=== PATIENT | female | born 1940 | race Two or more races ===

== ENCOUNTER 2020-06-04 14:20 | Observation (INO) | payer MEDICARE, MEDICAID, SELFPAY ==
[2020-06-04 14:33] VITALS: BP 158/92; PULSE 58; RESP 18; TEMP 37.1; O2SAT 97; BMI 25.8
--- NOTE | 2020-06-04 19:58 | PC.NURSE ---
CALL PLACED TO INTERPERATOR.
[2020-06-04 20:29] VITALS: BP 145/75; RESP 16; TEMP 36.8; O2SAT 58
--- NOTE | 2020-06-04 21:01 | ED.NEUROSD ---
HPI - Neuro Symptoms/Deficit General Chief Complaint: Neuro Symptoms/Deficit Stated Complaint: leg numbness Time Seen by Provider: 06/04/20 20:45 Source: patient Limitations: language barrier (manager product design used to obtain and review) History of Present Illness HPI Narrative: Please note, given the high volume, there was significant delay in evaluating this patient. 79-year-old female who presents to the emergency department for evaluation of right lower extremity weakness. The patient states that she woke up at noon and was unable to walk secondary to weakness. The symptoms persisted so she came to the emergency department 2 hours later and the weakness has persisted. She denies any numbness of her lower extremities. She denies headache or back pain. She denied being in any way including fever, chills, neck pain, numbness, nausea, vomiting, chest pain, shortness of breath, abdominal pain, change in bowel movements, frequency, urgency or dysuria. The patient states that she got electively tested for COVID 19, 4 days prior and got her result today and she is COVID-19 negative. Related Data Home Medications Medication Instructions Recorded Confirmed levothyroxine 1 tab PO DAILY 06/04/20 06/04/20 metoprolol succinate 1 tab PO DAILY 06/04/20 06/04/20 Allergies Allergy/AdvReac Type Severity Reaction Status Date / Time aspirin Allergy Mild HYPERVENTIL Verified 06/04/20 20:28 ATION Fish Containing Products Allergy Mild HIVES Verified 06/04/20 20:28 fish derived Allergy Mild HIVES Verified 06/04/20 20:28 Penicillins Allergy Mild DIFFICULTY Verified 06/04/20 20:28 BREATHING turkey Allergy Mild HIVES Verified 06/04/20 20:28 acetaminophen [Percocet] Allergy Unknown vomiting Verified 11/05/19 00:00 oxycodone [Percocet] Allergy Unknown vomiting Verified 11/05/19 00:00 penicillin V Allergy Unknown Vomiting Verified 06/04/20 20:28 From Percocet Allergy Unknown UNKNOWN Uncoded 02/12/20 15:05 Review of Systems Review of Systems: Yes all other systems are reviewed and are negative ENT: Reports Normal hearing present Neurologic: Reports Normal hearing present and Reports Abnormal speech present PMFSH Past Medical History [facility] Narrative: The patient has a history of thoracic aneurysm, hypertension and hypothyroidism, she lives with her daughter. She denies tobacco, alcohol or drug use. Social History Social History Smoked in Last 30 Days: No Use of substances other than those prescribed or required for medical reasons: No Advance Directives: No Advance Directives Information Provided: Yes Physical Exam Vital Signs: Vital Signs: Last Vital Signs Temp 98.2 F 06/04/20 20:29 Pulse 58 06/04/20 14:33 Resp 16 06/04/20 20:29 BP 145/75 H 06/04/20 20:29 Pulse Ox 58 L 06/04/20 20:29 Body Mass Index 25.8 Const: General: cooperative and healthy appearing Orientation/consciousness: oriented to person and oriented to place Limitations: no limitations HENMT: Head: Yes normal to inspection, Yes normocephalic and Yes atraumatic Ears: external ears normal General nose exam: Normal external nose present Face and sinus: Yes normal facial exam Mouth: Normal oral and palatal mucosa present Throat: Yes posterior oropharynx normal Eyes: Periorbital: periorbital findings normal Eyelids: Yes eyelids normal Conjunctivae: conjunctivae normal Sclerae: sclerae normal Corneas: corneas normal Pupils: Equal, round and reactive pupils present Direct Ophthalmoscopy: normal light reflex Neck: Neck: Yes full ROM, Yes no lymphadenopathy, Yes no meningeal signs, Yes trachea midline and Yes supple Chest: Chest palpation & inspection: normal inspection of the chest and normal palpation of entire chest wall Resp: Effort & Inspection: normal respiratory effort and able to speak in complete sentences Auscultation: clear to auscultation bilaterally Cardio: Rate: regular rate Rhythm: regular rhythm Heart sounds: S1 normal heart sound present, S2 normal heart sound present and no murmurs GI: Inspection: Yes normal to inspection Palpation (GI): Soft to palpation, nontender, no guarding, not rigid and No hepatosplenomegaly present : General: Yes no CVA tenderness Back/Spine/Pelvis: Back: no CVA tenderness Cervical Spine: normal cervical lordosis Thoracic/Lumbar Spine: thoracic and lumbar spine normal to inspection Skin: Lesions: no lesions Rashes: no rashes Wounds: no wounds Neuro: General: oriented to person, oriented to place and no meningeal signs Cranial nerves: Yes CN's II-XII intact bilaterally, Yes Equal, round and reactive pupils present, Yes Bilaterally intact EOM present, Yes Normal facial strength present, Yes Midline tongue present and Yes Normal hearing present Cognition (Neuro): normal cognition Speech: Abnormal speech present Motor exam (neuro): Other motor observations present (Unable to move right lower extremity against gravity or side to side on the) Sensory Exam: Normal double simultaneous stimulation for sensation Extrem: General: Yes normal to inspection and Yes other (Unable to move right lower extremity) Psych: Appearance: well kempt Mental Status: mental status grossly normal Speech and movement: Normal speech and movement present Affect: normal affect Attitude: cooperative Thought process: Normal thought process present Thought content: Normal thought content present Course Course Course Narrative: [age] female who presents to emergency department for evaluation of right lower extremity weakness that began at noon time on the day of arrival when the patient woke up. The weakness has persisted. Her neurologic exam did reveal inability to move the right leg against gravity with a normal sensory exam in no other neurologic findings. I did order stroke workup on this patient. She is not having any back symptoms and concerned that she may be having a stroke. The patient is allergic to aspirin and was not given any aspirin in the emergency department. 2241: Patient's laboratory evaluation was unremarkable. Twelve EKG reveals a sinus bradycardia, CT scan of the brain revealed an old right lacunar infarct with chronic small-vessel ischemia. At this time I do not have a clear etiology for the patient's right leg weakness, it is possible she may have had a stroke. I will discuss the patient's presentation with the covering neurologist and hospitalist. 2321: I did discuss the patient's presentation with Dr. Benito the neurologist who recommended that the patient be admitted and started on Plavix since she is allergic to aspirin. Patient was ordered to get Plavix 75 mg orally. He recommended an MRI and stroke workup on the patient. I also discuss the patient's presentation with the covering hospitalist. EKG interpretation 2201: Sinus bradycardia with a rate of 58, normal AK, QRS interval, prolonged QTC of 475 milliseconds, biphasic P-wave in lead 3, flattened T-wave in V2, no ST segment elevation, no ST segment depression, no old EKG for comparison, no evidence myocardial injury, ischemia. MDM - Neuro Symptoms/Deficit Lab Data Result diagrams: 06/04/20 21:23 06/04/20 21:23 Labs: Lab Results 06/04/20 06/04/20 06/04/20 Range/Units 21:23 21:23 21:23 WBC 3.7 L (4.8-10.8) X10*3/uL RBC 4.55 (4.20-5.50) X10*6/uL Hgb 11.9 L (12.0-16.0) g/dl Hct 38.6 (37-47) % MCV 84.8 (80-98) fL MCH 26.2 L (27.0-33.0) pg MCHC 30.8 L (31.0-35.0) g/dl RDW 15.7 (11.0-16.0) % Plt Count 179 (160-400) X10*3/uL MPV 11.0 (9.4-12.3) fL Immature Gran % (Auto) 1.4 H (0.0-0.4) % Neut % (Auto) 43.1 L (45-73) % Lymph % (Auto) 40.5 H (20-40) % [place] % (Auto) 12.8 H (2-11) % Eos % (Auto) 1.9 (0-4) % Baso % (Auto) 0.3 (0-2) % Lymph # (Auto) 1.5 (1.2-4.9) X10*3/uL [place] # (Auto) 0.5 (0.1-1.2) X10*3/uL Eos # (Auto) 0.1 (0.0-0.4) X10*3/uL Baso # (Auto) 0.0 (0.0-0.2) X10*3/uL Abs Immat Gran (auto) 0.05 H (0.00-0.03) X10*3/uL Absolute Neuts (auto) 1.6 L (2.0-8.3) X10*3/uL Absolute Nucleated RBC 0.000 (0.0-0.012) X10*3/uL Nucleated RBC % (auto) 0.0 (0.0-0.2) /100WBC PT 12.5 (10.8-13.0) SEC INR 1.1 (0.9-1.1) APTT 32.3 (24.1-38.0) SEC Sodium 142 (135-145) mmol/L Potassium 4.1 (3.3-5.1) mmol/l Chloride 106 (96-108) mmol/L Carbon Dioxide 27 (22-29) mmol/L Anion Gap 13 (12-20) BUN 15 (9-16) mg/dL Creatinine 0.76 (0.5-1.4) mg/dL Estim Creat Clear Calc 61.2 Estimated GFR > 60 Random Glucose 84 (60-115) mg/dL Calcium 8.9 (8.4-10.2) mg/dL Total Bilirubin 0.6 (0.0-1.0) mg/dL AST 12 (5-31) U/L ALT 9 (0-31) U/L Alkaline Phosphatase 56 (39-117) U/L Troponin I High Sens (<3.5-17.0) ng/L Total Protein 7.2 (6.5-8.0) g/dL Albumin 4.1 (3.5-5.0) g/dL Lipase 70 (8-78) U/L 06/04/20 Range/Units 21:23 WBC (4.8-10.8) X10*3/uL RBC (4.20-5.50) X10*6/uL Hgb (12.0-16.0) g/dl Hct (37-47) % MCV (80-98) fL MCH (27.0-33.0) pg MCHC (31.0-35.0) g/dl RDW (11.0-16.0) % Plt Count (160-400) X10*3/uL MPV (9.4-12.3) fL Immature Gran % (Auto) (0.0-0.4) % Neut % (Auto) (45-73) % Lymph % (Auto) (20-40) % [place] % (Auto) (2-11) % Eos % (Auto) (0-4) % Baso % (Auto) (0-2) % Lymph # (Auto) (1.2-4.9) X10*3/uL [place] # (Auto) (0.1-1.2) X10*3/uL Eos # (Auto) (0.0-0.4) X10*3/uL Baso # (Auto) (0.0-0.2) X10*3/uL Abs Immat Gran (auto) (0.00-0.03) X10*3/uL Absolute Neuts (auto) (2.0-8.3) X10*3/uL Absolute Nucleated RBC (0.0-0.012) X10*3/uL Nucleated RBC % (auto) (0.0-0.2) /100WBC PT (10.8-13.0) SEC INR (0.9-1.1) APTT (24.1-38.0) SEC Sodium (135-145) mmol/L Potassium (3.3-5.1) mmol/l Chloride (96-108) mmol/L Carbon Dioxide (22-29) mmol/L Anion Gap (12-20) BUN (9-16) mg/dL Creatinine (0.5-1.4) mg/dL Estim Creat Clear Calc Estimated GFR Random Glucose (60-115) mg/dL Calcium (8.4-10.2) mg/dL Total Bilirubin (0.0-1.0) mg/dL AST (5-31) U/L ALT (0-31) U/L Alkaline Phosphatase (39-117) U/L Troponin I High Sens 14.1 (<3.5-17.0) ng/L Total Protein (6.5-8.0) g/dL Albumin (3.5-5.0) g/dL Lipase (8-78) U/L Imaging Data CT scan - head: Radiologist's impression: EXAMINATION: CT HEAD WITHOUT CONTRAST CLINICAL INFORMATION: Right leg weakness. Concern for a stroke COMPARISON: CT head 07/20/2010 TECHNIQUE: Contiguous axial imaging was performed from the skull base to vertex without intravenous administration of contrast. Coronal and sagittal reformatted images are performed at the CT scanner This CT examination was performed using dose optimization techniques as appropriate, variously including the following: *Automated exposure control *Adjustment of mA and/or kV according to patient size (this includes techniques or standardized protocols for targeted exams where dose is matched to indication/reason for exam; i.e. extremities or head) *Use of iterative reconstruction technique DLP: 749 mGy-cm FINDINGS: There is no evidence of acute intracranial hemorrhage or territorial infarction. No abnormal mass effect or midline shift is seen. Hinojosa to white matter differentiation is well preserved. No extra-axial fluid collections are identified. Chronic lacunar infarct in the right head of the caudate. There is age-appropriate atrophy of mild prominence of the ventricles and the sulci and hypodensity of the periventricular white matter due to chronic small vessel ischemic disease. There are vascular calcifications of the internal carotid arteries bilaterally. The osseous structures and soft tissues are normal. The mastoid air cells and visualized portions of the paranasal sinuses are well aerated. CT/CT head/brain wo con IMPRESSION: No acute intracranial pathology. Dictated By:JUANITA FRIAS MD Signed By:<Electronically signed by JUANITA FRIAS MD in OV>06/04/20 2724 NIH Stroke Scale Time: 21:07 Level of Consciousness: Alert Level of Consciousness Questions: Answers both questions correctly Level of Consciousness Commands: Performs both tasks correctly Best Gaze: Normal Visual: No visual loss Facial Palsy: Normal Motor Arm (Right): No drift Motor Arm (Left): No drift Motor Leg (Right): No movement Motor Leg (Left): No drift Limb Ataxia: Absent Sensory: Normal Best Language: No aphasia Dysarthia: Normal Extinction and Inattention: No abnormality Score: 4 Discharge Plan Discharge Clinical Impression: Cerebrovascular accident, Right leg weakness Patient Disposition: Admitted As Inpatient
--- NOTE | 2020-06-04 21:02 | ECG_ITS ---
Test Reason : WEAKNESS Blood Pressure : / mmHG Vent. Rate : 058 BPM Atrial Rate : 058 BPM P-R Int : 168 ms QRS Dur : 084 ms QT Int : 484 ms P-R-T Axes : 042 -19 057 degrees QTc Int : 475 ms Sinus bradycardia Possible Left atrial enlargement Borderline ECG When compared with ECG of 26-MAY-2012 14:51, Nonspecific T wave abnormality now evident in Anterior leads Referred By: Braxton Mcadams Electronically Signed By:Keaton Case
[2020-06-04 21:29] LABS: Basophils Percent Auto 0.3 % (0-2); Eosinophils Absolute Auto 0.1 X10*3/uL (0.0-0.4); Eosinophils Percent Auto 1.9 % (0-4); Hematocrit 38.6 % (37-47); Hemoglobin 11.9 g/dl (12.0-16.0); Imm Gran Abs Auto 0.05 X10*3/uL (0.00-0.03); Imm Gran Pct Auto 1.4 % (0.0-0.4); Lymphocytes Absolute Auto 1.5 X10*3/uL (1.2-4.9); Lymphocytes Percent Auto 40.5 % (20-40); Mean Corpuscular HGB Conc 30.8 g/dl (31.0-35.0); Mean Corpuscular Hemoglobin 26.2 pg (27.0-33.0); Mean Corpuscular Volume 84.8 fL (80-98); Monocytes Absolute Auto 0.5 X10*3/uL (0.1-1.2); Monocytes Percent Auto 12.8 % (2-11); Neutrophils Absolute Auto 1.6 X10*3/uL (2.0-8.3); Neutrophils Percent Auto 43.1 % (45-73); Platelet Count 179 X10*3/uL (160-400); Red Blood Count 4.55 X10*6/uL (4.20-5.50); Red Cell Distribution Width 15.7 % (11.0-16.0); White Blood Count 3.7 X10*3/uL (4.8-10.8)
[2020-06-04 21:30] LABS: MANUAL DIFF FLAG NO
[2020-06-04 21:38] LABS: INTERNATIONAL NORM RATIO 1.1 (0.9-1.1); Prothrombin Time 12.5 SEC (10.8-13.0)
[2020-06-04 21:40] LABS: Partial Thromboplastin Time 32.3 SEC (24.1-38.0)
[2020-06-04 21:59] LABS: Alanine Aminotransferase 9 U/L (0-31); Albumin Level 4.1 g/dL (3.5-5.0); Alkaline Phosphatase 56 U/L (39-117); Anion Gap 13 (12-20); Aspartate Amino Transferase 12 U/L (5-31); Bilirubin Total 0.6 mg/dL (0.0-1.0); Blood Urea Nitrogen 15 mg/dL (9-16); Calcium 8.9 mg/dL (8.4-10.2); Carbon Dioxide 27 mmol/L (22-29); Chloride 106 mmol/L (96-108); Creatinine Clr Calc Pharmacy 61.2; Estimated Glomerular Filt Rate > 60; Glucose Random 84 mg/dL (60-115); Lipase 70 U/L (8-78); Potassium 4.1 mmol/l (3.3-5.1); Sodium 142 mmol/L (135-145); Total Protein 7.2 g/dL (6.5-8.0)
[2020-06-04 22:05] LABS: Troponin-I High Sensitivity 14.1 ng/L (<3.5-17.0)
--- NOTE | 2020-06-04 23:32 | PC.NURSE ---
dr quan with neurologist pt will be admitted for observation and MRI tomorrow. plavix will be started.
[2020-06-04] MEDS: Clopidogrel Bisulfate 75 MG TABLET PO (23:37)
[2020-06-04 23:39] LABS: Glucose Urine UA NEG (NEG); Leukocyte Esterase Urine NEG (NEG); Nitrite Urine NEG (NEG); Specific Gravity - Urine 1.025 (1.005-1.025); Urine Blood NEG (NEG); Urine Ketones NEG (NEG); Urine Protein NEG (NEG-TRACE)
[2020-06-04 23:42] LABS: Appearance Urine CLEAR; Color Urine YELLOW; UACC Culture Trigger NO
[2020-06-05] VITALS (8 sets, daily range): BP systolic 119–172; BP diastolic 87–97; PULSE 56–67; RESP 14–17; TEMP 36.8–37.1; O2SAT 94–97
[2020-06-05 00:40] LABS: COVID-19 Test Negative (Negative); IDNOW Serial# 9DD0AD1C
--- NOTE | 2020-06-05 00:54 | PM.IMHP ---
History of Present Illness Date of Service: 06/05/20 Chief Complaint: Right lower extremity weakness A 79 years old Ethiopian-speaking lady with PMH of HTN, hypothyroid who presents to the hospital with new onset right lower extremity weakness. The patient report she woke up in the morning of admission and noticed directly that she is unable to move her right lower extremity almost at all. She was able to feel as she did not lose sensation in her leg. Her symptoms persisted since the beginning and did not improve. She denies any other weakness, difficulty speaking, double vision, dizziness, loss of conscious, lose of sphincter control. In the emergency her blood work was within normal. CT scan of the head showing old right lacunar infarct with small-vessel ischemia. Discussed with neurology who recommended starting Plavix and to do MRI. Admitted for further evaluation treatment. Review of Systems Review of Systems: No fever, chills or weakness No chest pain, palpitation No shortness of breath or coughing No abdominal pain, nausea or vomiting No urinary symptoms No any rash or wounds ENT: Reports Normal hearing present Neurologic: Reports Normal hearing present and Reports Abnormal speech present [facility] Social History Smoked in Last 30 Days: No Use of substances other than those prescribed or required for medical reasons: No Advance Directives: No Advance Directives Information Provided: Yes Meds Allergies Allergy/AdvReac Type Severity Reaction Status Date / Time aspirin Allergy Mild HYPERVENTIL Verified 06/04/20 20:28 ATION Fish Containing Products Allergy Mild HIVES Verified 06/04/20 20:28 fish derived Allergy Mild HIVES Verified 06/04/20 20:28 Penicillins Allergy Mild DIFFICULTY Verified 06/04/20 20:28 BREATHING turkey Allergy Mild HIVES Verified 06/04/20 20:28 acetaminophen [Percocet] Allergy Unknown vomiting Verified 11/05/19 00:00 oxycodone [Percocet] Allergy Unknown vomiting Verified 11/05/19 00:00 penicillin V Allergy Unknown Vomiting Verified 06/04/20 20:28 From Percocet Allergy Unknown UNKNOWN Uncoded 02/12/20 15:05 Home Medications Medication Instructions Recorded Confirmed Type levothyroxine 1 tab PO DAILY 06/04/20 06/04/20 History metoprolol succinate 1 tab PO DAILY 06/04/20 06/04/20 History Physical Exam Vital Signs and Narrative: Vital Signs: Last Vital Signs Temp 98.7 F 06/05/20 00:43 Pulse 58 06/05/20 00:43 Resp 16 06/05/20 00:43 BP 156/89 H 06/05/20 00:43 Pulse Ox 96 06/05/20 00:43 Body Mass Index 25.8 Constitutional : Alert, oriented, not in distress Neck : Normal inspection, Supple Cardiovascular : RRR, S1 S2, no lower extremity edema Respiratory : Good bilateral air entry, no crackles, wheezes or rhonchi Gastrointestinal: soft, lax, Normal bowel sounds, Non tender Skin : Warm/Dry, No rash Neurological : Alert & oriented x3, cranial nerves grossly within normal, pupils round and equal, reactive to light, bilateral upper extremity normal strength and power, right lower extremity weakness of 1, no sensory deficit noticed. Neuro: Cranial nerves: Yes Normal hearing present Speech: Abnormal speech present Results Labs CBC and Chem 7: 06/04/20 21:23 06/04/20 21:23 Labs: Laboratory Results - last 24 hr 06/04/20 06/04/20 06/04/20 21:23 21:23 21:23 MCV 84.8 MCH 26.2 L MCHC 30.8 L RDW 15.7 Plt Count 179 MPV 11.0 Immature Gran % (Auto) 1.4 H Neut % (Auto) 43.1 L Lymph % (Auto) 40.5 H [place] % (Auto) 12.8 H Eos % (Auto) 1.9 Baso % (Auto) 0.3 Lymph # (Auto) 1.5 [place] # (Auto) 0.5 Eos # (Auto) 0.1 Baso # (Auto) 0.0 Abs Immat Gran (auto) 0.05 H Absolute Neuts (auto) 1.6 L Absolute Nucleated RBC 0.000 Nucleated RBC % (auto) 0.0 PT 12.5 INR 1.1 APTT 32.3 Anion Gap 13 Estim Creat Clear Calc 61.2 Estimated GFR > 60 Random Glucose 84 Calcium 8.9 Total Bilirubin 0.6 AST 12 ALT 9 Alkaline Phosphatase 56 Troponin I High Sens Total Protein 7.2 Albumin 4.1 Lipase 70 Urine Color Urine Appearance Urine pH Ur Specific [place] Urine Protein Urine Glucose (UA) Urine Ketones Urine Blood Urine Nitrite Ur Leukocyte Esterase COVID-19 (KAREN) COVID-19 Clin Com 06/04/20 06/04/20 06/04/20 21:23 23:27 23:27 MCV MCH MCHC RDW Plt Count MPV Immature Gran % (Auto) Neut % (Auto) Lymph % (Auto) [place] % (Auto) Eos % (Auto) Baso % (Auto) Lymph # (Auto) [place] # (Auto) Eos # (Auto) Baso # (Auto) Abs Immat Gran (auto) Absolute Neuts (auto) Absolute Nucleated RBC Nucleated RBC % (auto) PT INR APTT Anion Gap Estim Creat Clear Calc Estimated GFR Random Glucose Calcium Total Bilirubin AST ALT Alkaline Phosphatase Troponin I High Sens 14.1 Total Protein Albumin Lipase Urine Color YELLOW Urine Appearance CLEAR Urine pH 6.0 Ur Specific [place] 1.025 Urine Protein NEG Urine Glucose (UA) NEG Urine Ketones NEG Urine Blood NEG Urine Nitrite NEG Ur Leukocyte Esterase NEG COVID-19 (KAREN) Negative COVID-19 Clin Com See Note Imaging Radiologist's Impressions: Impressions Head CT 06/04/20 21:02 IMPRESSION: No acute intracranial pathology. Assessment and Plan (1) Right leg weakness: Status: Acute A 79 years old Ethiopian-speaking lady with PMH of HTN, hypothyroid who presents to the hospital with new onset right lower extremity weakness. Right lower extremity weakness Could be secondary to CVA, spinal cord injury, peripheral neuropathy CT scan not showing any acute findings To check MRI in the morning Discussed with neurology by ED, recommended starting Plavix as patient allergic to aspirin Neurology consult in the morning PT/OT Neuro checks Q 2 Hypertension Continue metoprolol, dose decreased to keep blood pressure might elevated Hypothyroidism Continue levothyroxine DVT PPX Heparin
--- NOTE | 2020-06-05 00:54 | PC.NURSE ---
PT AMBULATED TO RESTROOM WELL WITH 1 ASSIST.
[2020-06-05] MEDS: Heparin Sodium,Porcine 5,000 UNIT/ML VIAL 5000 UNIT SUBCUT ×3 (02:08→18:09)
[2020-06-05 06:19] LABS: Basophils Percent Auto 0.3 % (0-2); Eosinophils Absolute Auto 0.1 X10*3/uL (0.0-0.4); Eosinophils Percent Auto 2.1 % (0-4); Hematocrit 35.8 % (37-47); Hemoglobin 11.4 g/dl (12.0-16.0); Imm Gran Abs Auto 0.03 X10*3/uL (0.00-0.03); Imm Gran Pct Auto 0.9 % (0.0-0.4); Lymphocytes Absolute Auto 1.6 X10*3/uL (1.2-4.9); Lymphocytes Percent Auto 48.2 % (20-40); MANUAL DIFF FLAG NO; Mean Corpuscular HGB Conc 31.8 g/dl (31.0-35.0); Mean Corpuscular Hemoglobin 26.8 pg (27.0-33.0); Mean Platelet Volume 10.8 fL (9.4-12.3); Monocytes Absolute Auto 0.4 X10*3/uL (0.1-1.2); Monocytes Percent Auto 10.4 % (2-11); Neutrophils Absolute Auto 1.3 X10*3/uL (2.0-8.3); Neutrophils Percent Auto 38.1 % (45-73); Platelet Count 156 X10*3/uL (160-400); Red Blood Count 4.26 X10*6/uL (4.20-5.50); Red Cell Distribution Width 15.5 % (11.0-16.0); White Blood Count 3.4 X10*3/uL (4.8-10.8)
[2020-06-05 06:57] LABS: Anion Gap 14 (12-20); Blood Urea Nitrogen 16 mg/dL (9-16); Calcium 8.7 mg/dL (8.4-10.2); Carbon Dioxide 25 mmol/L (22-29); Chloride 105 mmol/L (96-108); Creatinine Clr Calc Pharmacy 61.2; Estimated Glomerular Filt Rate > 60; Glucose Random 95 mg/dL (60-115); Sodium 140 mmol/L (135-145)
--- NOTE | 2020-06-05 11:11 | PM.NEUROCN ---
History of Present Illness Data of Consult Service Date: 06/05/20 Primary Care Provider: Mary Weber MD 79 years old woman with past medical history of hypertension came to hospital with new onset of right leg weakness. It started many hours before she came to emergency room and she was not considered a candidate for intravenous tPA type of treatment dose stroke was considered as a possibility. She did not have any pain numbness or tingling and there was no history of any recent trauma. There was no complain of any problem with arm or face or language or speech. This problem started at least within 24 hours of coming to emergency room. Review of Systems Review of Systems: No recent trauma or cold or flu-like illness. No bowel bladder complaints. No back pain. ENT: Reports Normal hearing present Neurologic: Reports Normal hearing present and Reports Abnormal speech present [facility] Social History Social History Smoked in Last 30 Days: No Use of substances other than those prescribed or required for medical reasons: No Advance Directives: No Advance Directives Information Provided: Yes Meds Allergies Allergy/AdvReac Type Severity Reaction Status Date / Time aspirin Allergy Mild HYPERVENTIL Verified 06/04/20 20:28 ATION Fish Containing Products Allergy Mild HIVES Verified 06/04/20 20:28 fish derived Allergy Mild HIVES Verified 06/04/20 20:28 Penicillins Allergy Mild DIFFICULTY Verified 06/04/20 20:28 BREATHING turkey Allergy Mild HIVES Verified 06/04/20 20:28 acetaminophen [Percocet] Allergy Unknown vomiting Verified 11/05/19 00:00 oxycodone [Percocet] Allergy Unknown vomiting Verified 11/05/19 00:00 penicillin V Allergy Unknown Vomiting Verified 06/04/20 20:28 From Percocet Allergy Unknown UNKNOWN Uncoded 02/12/20 15:05 Home Medications Medication Instructions Recorded Confirmed Type levothyroxine 1 tab PO DAILY 06/04/20 06/04/20 History metoprolol succinate 1 tab PO DAILY 06/04/20 06/04/20 History Physical Exam Vital Signs: Vital Signs: Last Vital Signs Temp 98.3 F 06/05/20 06:10 Pulse 60 06/05/20 09:59 Resp 16 06/05/20 09:59 BP 154/87 H 06/05/20 09:59 Pulse Ox 95 06/05/20 09:59 Body Mass Index 25.8 She was alert and awake with normal spontaneity of speech fluency comprehension and affect. She followed commands. Pupils were round reactive to light. Face was symmetrical. There was no pronator drift or any obvious arm weakness. She was able to wiggle toes with both feet. When asked to lift each leg individually against gravity, she was able to lift the leg 1 easily but barely could do so with the right leg. She was unable to flex her leg. I was able to move her legs in flexor joints without any discomfort. Deep tendon reflexes were trace with flexor plantars. There was no visual deficit or extension. She was not in any distress. Neuro: Cranial nerves: Yes Normal hearing present Speech: Abnormal speech present Results Labs CBC & Chem 7: 06/05/20 06:14 06/05/20 06:14 Labs: Short CBC 06/04/20 06/05/20 Range/Units 21:23 06:14 WBC 3.7 L 3.4 L (4.8-10.8) X10*3/uL Hgb 11.9 L 11.4 L (12.0-16.0) g/dl Hct 38.6 35.8 L (37-47) % Plt Count 179 156 L (160-400) X10*3/uL BMP 06/04/20 06/05/20 21:23 06:14 Sodium 142 140 Potassium 4.1 4.0 Chloride 106 105 Carbon Dioxide 27 25 BUN 15 16 Creatinine 0.76 0.76 Calcium 8.9 8.7 Liver Function 06/04/20 Range/Units 21:23 Total Bilirubin 0.6 (0.0-1.0) mg/dL AST 12 (5-31) U/L ALT 9 (0-31) U/L Alkaline Phosphatase 56 (39-117) U/L Albumin 4.1 (3.5-5.0) g/dL Urine 06/04/20 Range/Units 23:27 Urine Color YELLOW Urine Appearance CLEAR Urine pH 6.0 (5.0-8.0) Ur Specific [place] 1.025 (1.005-1.025) Urine Protein NEG (NEG-TRACE) MG/DL Urine Glucose (UA) NEG (NEG) MG/DL Her noncontrast head CT revealed moderately severe chronic microvascular ischemic changes but no obvious acute lesion. Middle cerebral arteries signal abnormalities were within normal and symmetric. Assessment and Plan (1) Right leg weakness: Status: Acute 79 years old woman with new onset of right leg weakness. Examination did not reveal any obvious findings other than moderate leg weakness. Likely explanation was a small stroke. REc: a: plavix 75mg daily b: MRI brain WO cont
[2020-06-05] MEDS: Clopidogrel Bisulfate 75 MG TABLET PO (11:21)
[2020-06-05] MEDS: Metoprolol Succinate ER 100 MG TAB.ER.24H 50 MG PO (11:21)
[2020-06-05] MEDS: Levothyroxine Sodium 25 MCG TABLET PO (11:21)
[2020-06-05] MEDS: Atorvastatin Calcium 10 MG TABLET 40 MG PO (11:21)
--- NOTE | 2020-06-05 11:36 | MR_ITS ---
EXAMINATION: MR BRAIN WITHOUT CONTRAST CLINICAL INFORMATION: Acute CVA. COMPARISON: Head CT 06/04/2020. TECHNIQUE: Multiplanar, multisequence imaging of the brain was performed without intravenous contrast. FINDINGS: A small focus of acute infarction is seen involving the posterior bank of the medial aspect of the left precentral gyrus best defined on series 4 image 26/30. No large territory infarction or hemorrhage is seen. Moderate foci of T2 hyperintensity are seen in the bilateral cerebral white matter compatible with chronic microangiopathy. There are bilateral basal ganglia and right more the left thalamic lacunar infarcts in a background of prominent perivascular spaces. Small lacunar infarcts are seen within the right and left cerebellar hemispheres. The ventricles and sulci are commensurate. No hydrocephalus is seen. The major arterial flow voids appear preserved at the skull base. 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 There is severe degenerative change about the right aspect of the occipital condyle and C2 vertebral body. 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 MR/MR head/brain wo con IMPRESSION: Small focus of acute infarction in the left precentral gyrus. No large territory infarction. 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 No parenchymal signal change is seen at the cervicomedullary junction.
--- NOTE | 2020-06-05 15:40 | P.EN_ITS ---
Event Note Date of Service: 06/05/20 Event Note: patient admitted with right lower extremity weakness CT head s hows Small focus of acute infarction in the left precentral gyrus patient seen and examined at bedside reporting lower extremity weakness improving on exam alert abdomen soft CVS rate and rhythm regular is clear right lower extremity strength 4/5 admitted with acute CVA , MRI pending neuro consulted recommended continue Plavix and statin and MRI brain continue Plavix given allergy to aspirin continue statin monitor neuro checks see H&P from today for more detail
--- NOTE | 2020-06-05 19:04 | PC.NURSE ---
REPORT TAKEN FROM JUSTO SAUNDERS, FIRST CONTACT WITH PT. RESTING IN BED SKIN PWD RESPIRATIONS EVEN UNLABORED. VSS DENIES ANY PAIN AT THIS TIME. NEUROS INTACT. AWAITING BED ASSIGNMENT FOR ADMISSION, AWARE OF PLAN OF CARE.
--- NOTE | 2020-06-05 22:14 | PC.NURSE ---
PT AMB TO BATHROOM WITH 1 MINIMUM ASSIST. STEADY GAIT. OFFERS NO COMPLAINTS, NEUROS INTACT WITH SLIGHT RIGHT SIDED WEAKNESS.
[2020-06-06] VITALS (7 sets, daily range): BP systolic 130–155; BP diastolic 74–89; PULSE 60–68; RESP 13–18; TEMP 36.9–37.1; O2SAT 95–98
[2020-06-06] MEDS: Heparin Sodium,Porcine 5,000 UNIT/ML VIAL 5000 UNIT SUBCUT ×2 (00:44→09:57)
--- NOTE | 2020-06-06 03:15 | PC.NURSE ---
PT RESTING IN BED SKIN PWD RESPIRATIONS EVEN UNLABORED. NO DISTRESS NOTED. AWAITING BED ASSIGNMENT FOR ADMISSION.
--- NOTE | 2020-06-06 05:55 | PC.NURSE ---
PT CONTINUES TO REST IN BED NO DISTRESS NOTED. NSR ON [employer]IVE VSS. CONTINUES TO AWAIT BED ASSIGNMENT.
[2020-06-06 09:37] LABS: Cholesterol 171 mg/dL; HDL Cholesterol 54 mg/dL; LDL Cholesterol Calculated 102 mg/dl; Triglycerides 77 mg/dL
[2020-06-06] MEDS: Atorvastatin Calcium 10 MG TABLET 40 MG PO (09:56)
[2020-06-06] MEDS: Levothyroxine Sodium 25 MCG TABLET PO (09:56)
[2020-06-06] MEDS: Metoprolol Succinate ER 100 MG TAB.ER.24H 50 MG PO (09:57)
[2020-06-06] MEDS: Clopidogrel Bisulfate 75 MG TABLET PO (09:58)
--- NOTE | 2020-06-06 11:11 | P.DS_ITS ---
DS: Providers Provider Date of Service: 06/12/20 Date of admission: 06/05/20 00:28 Primary care physician: Mary Weber MD Consults: 06/05/20 00:28 Consult to Neurology Routine Consulting Provider: Stephanie Benito Reason for consultation: Right lower extremity weakness DS: Diagnosis Discharge Diagnosis (1) Right leg weakness: Status: Acute DS: Medications Discharge Medications Home Medications: Home Medications Medication Instructions Recorded Confirmed metoprolol succinate 1 tab PO DAILY 06/04/20 06/04/20 Previous Rx's Medication Instructions Recorded atorvastatin 40 mg PO DAILY #30 tab 06/06/20 clopidogrel 75 mg PO DAILY #30 tab 06/06/20 levothyroxine 25 mcg PO DAILY #30 tab 06/06/20 DS: Summary Hospital Course Hospital Course: History of presenting illness 79 years old Trinidadian-speaking lady with PMH of HTN, hypothyroid who presents to the hospital with new onset right lower extremity weakness. The patient report she woke up in the morning of admission and noticed directly that she is unable to move her right lower extremity almost at all. She was able to feel as she did not lose sensation in her leg. Her symptoms persisted since the beginning and did not improve. She denies any other weakness, difficulty speaking, double vision, dizziness, loss of conscious, lose of sphincter control. In the emergency her blood work was within normal. CT scan of the head showing old right lacunar infarct with small-vessel ischemia. Discussed with neurology who recommended starting Plavix and to do MRI. Admitted for further evaluation treatment. Hospital course 79-year-old Trinidadian speaking patient with past medical history of hypertension presented to [facility] due to acute onset of right lower extremity weakness, no acute intracranial pathology, an MRI study obtained that showed a small focus of acute infarction in the left precentral gyrus, there was no mass effect, patient also noted to have chronic infarction in the bilateral basal ganglia, thalami And cerebellar hemispheres with background changes of moderate chronic microangiopathy, lipid profile showed an LDL of 102 with a total cholesterol of 171, blood sugars stable around 80, patient also noted to have stable blood pressure, patient was evaluated by Physical therapy and they recommended outpatient physical therapy, currently patient right lower extremity weakness has resolved she is able to ambulate and is eager to be discharged home, therefore recommended to obtain a carotid ultrasound and echocardiogram as outpatient to be scheduled by primary care physician, patient has been instructed to be seen by PCP in 1 week time to arrange for outpatient testing, patient seen by Neurology and they recommended Plavix 75 mg by mouth daily since patient allergic to aspirin that causes hyperventilation. Time Spent with Patient Time attestation: Total time spent providing and/or coordinating discharge services: Discharge coordination time: Greater than 30 minutes Physical Exam Vital Signs: Vital Signs: Last Vital Signs Temp 98.4 F 06/06/20 09:54 Pulse 61 06/06/20 09:57 Resp 13 06/06/20 09:54 BP 151/79 H 06/06/20 09:57 Pulse Ox 95 06/06/20 09:54 Body Mass Index 25.8 General patient resting comfortably in no acute distress. Neck is supple no JVD. CVS regular rate rhythm, Respiratory lungs clear to auscultation, no respiratory distress, Gastrointestinal abdomen soft, nontender, bowel sounds audible, no no guarding , no rigidity. Extremities no clubbing cyanosis or edema. Neuro nonfocal moving all 4 extremity, good right lower extremity strenght, speech clear. Skin no rash DS: Data Data Completed and Pending Labs on day of discharge: Laboratory Tests 06/04/20 06/04/20 06/04/20 21:23 21:23 21:23 WBC 3.7 L RBC 4.55 Hgb 11.9 L Hct 38.6 MCV 84.8 MCH 26.2 L MCHC 30.8 L RDW 15.7 Plt Count 179 MPV 11.0 Immature Gran % (Auto) 1.4 H Neut % (Auto) 43.1 L Lymph % (Auto) 40.5 H [place] % (Auto) 12.8 H Eos % (Auto) 1.9 Baso % (Auto) 0.3 Lymph # (Auto) 1.5 [place] # (Auto) 0.5 Eos # (Auto) 0.1 Baso # (Auto) 0.0 Abs Immat Gran (auto) 0.05 H Absolute Neuts (auto) 1.6 L Absolute Nucleated RBC 0.000 Nucleated RBC % (auto) 0.0 PT 12.5 INR 1.1 APTT 32.3 Sodium 142 Potassium 4.1 Chloride 106 Carbon Dioxide 27 Anion Gap 13 BUN 15 Creatinine 0.76 Estim Creat Clear Calc 61.2 Estimated GFR > 60 Random Glucose 84 Calcium 8.9 Total Bilirubin 0.6 AST 12 ALT 9 Alkaline Phosphatase 56 Troponin I High Sens Total Protein 7.2 Albumin 4.1 Triglycerides Cholesterol LDL Cholesterol, Calc HDL Cholesterol Lipase 70 Urine Color Urine Appearance Urine pH Ur Specific [place] Urine Protein Urine Glucose (UA) Urine Ketones Urine Blood Urine Nitrite Ur Leukocyte Esterase COVID-19 (KAREN) COVID-19 Clin Com 06/04/20 06/04/20 06/04/20 21:23 23:27 23:27 WBC RBC Hgb Hct MCV MCH MCHC RDW Plt Count MPV Immature Gran % (Auto) Neut % (Auto) Lymph % (Auto) [place] % (Auto) Eos % (Auto) Baso % (Auto) Lymph # (Auto) [place] # (Auto) Eos # (Auto) Baso # (Auto) Abs Immat Gran (auto) Absolute Neuts (auto) Absolute Nucleated RBC Nucleated RBC % (auto) PT INR APTT Sodium Potassium Chloride Carbon Dioxide Anion Gap BUN Creatinine Estim Creat Clear Calc Estimated GFR Random Glucose Calcium Total Bilirubin AST ALT Alkaline Phosphatase Troponin I High Sens 14.1 Total Protein Albumin Triglycerides Cholesterol LDL Cholesterol, Calc HDL Cholesterol Lipase Urine Color YELLOW Urine Appearance CLEAR Urine pH 6.0 Ur Specific [place] 1.025 Urine Protein NEG Urine Glucose (UA) NEG Urine Ketones NEG Urine Blood NEG Urine Nitrite NEG Ur Leukocyte Esterase NEG COVID-19 (KAREN) Negative COVID-19 Clin Com See Note 06/05/20 06/05/20 06/06/20 06:14 06:14 08:57 WBC 3.4 L RBC 4.26 Hgb 11.4 L Hct 35.8 L MCV 84.0 MCH 26.8 L MCHC 31.8 RDW 15.5 Plt Count 156 L MPV 10.8 Immature Gran % (Auto) 0.9 H Neut % (Auto) 38.1 L Lymph % (Auto) 48.2 H [place] % (Auto) 10.4 Eos % (Auto) 2.1 Baso % (Auto) 0.3 Lymph # (Auto) 1.6 [place] # (Auto) 0.4 Eos # (Auto) 0.1 Baso # (Auto) 0.0 Abs Immat Gran (auto) 0.03 Absolute Neuts (auto) 1.3 L Absolute Nucleated RBC 0.000 Nucleated RBC % (auto) 0.0 PT INR APTT Sodium 140 Potassium 4.0 Chloride 105 Carbon Dioxide 25 Anion Gap 14 BUN 16 Creatinine 0.76 Estim Creat Clear Calc 61.2 Estimated GFR > 60 Random Glucose 95 Calcium 8.7 Total Bilirubin AST ALT Alkaline Phosphatase Troponin I High Sens Total Protein Albumin Triglycerides 77 Cholesterol 171 LDL Cholesterol, Calc 102 HDL Cholesterol 54 Lipase Urine Color Urine Appearance Urine pH Ur Specific [place] Urine Protein Urine Glucose (UA) Urine Ketones Urine Blood Urine Nitrite Ur Leukocyte Esterase COVID-19 (KAREN) COVID-19 Clin Com Discharge Plan Discharge Patient Disposition: Home Health Service Referrals: [facility] [Outside] (PATIENT IS DISCHARGED HOME WITH A REFERRAL TO [facility]. THE AGENCY IS WILLING TO OFFER SERVICES. IF [facility] IS UNABLE TO OFFER, WE WILL ARRANGE FOR ANOTHER SERVICE. PLEASE FEEL FREE TO CONTACT CASE MANAGEMENT @ [phone] IF YOU HAVE NOT HEARD FROM THEM BY Sunday06/08/2020 ) Mary Weber MD [Primary Care Provider] - Discharge Medications: New atorvastatin 10 mg Tablet 40 mg PO DAILY Qty: 30 RF: 0 clopidogrel 75 mg Tablet 75 mg PO DAILY Qty: 30 RF: 0 levothyroxine 25 mcg Tablet 25 mcg PO DAILY Qty: 30 RF: 0 Continued metoprolol succinate 100 mg tablet extended release 24 hr 1 tab PO DAILY RF: 0 Discontinued levothyroxine 25 mcg tablet 1 tab PO DAILY RF: 0 Discharge Orders: Discharge Order (Routine); Ordered 06/06/20 Ordered By: Ara Arrington Diet: low fat, low cholesterol Activity on Discharge: As tolerated Discharge Date/Time: 06/06/20 15:53 Visit Report Forms: Patient Portal Discharge page Care Plan Goals: out patient echocardiogram and carotid ultrasound Health Concerns: Acute CVA Plan of Treatment: Close outpatient follow-up with primary care physician
--- NOTE | 2020-06-06 12:55 | MHC.CM.PN ---
PATIENT IS DISCHARGED HOME WITH A NEW REFERRAL TO [facility]. AGENCY IS WILLING TO START SERVICES BY SUNDAY OR SUNDAY ONCE PCP IS VERIFIED. PATIENT LIVES WITH HER DAUGHTER KRISTOFER, WHO PROVIDES CARE FOR THE PATIENT. IMM 06/06 IN CHART
--- NOTE | 2020-06-06 15:57 | W.MHC.F2F ---
Service Date Service Date: 06/06/20 Encounter Date of encounter: 06/06/20 Reasons for Services Reason for [facility]: neurological assessment and medication management Reason for physical therapy: home safety and mobility Overseeing Care: Mary Weber Homebound: Leaving the home is medically contraindicated at this time without the asist of a device and/or another person due th the listed conditions above and below. Reason homebound: unsteady gait / fall risk Homebound supporting statement: Patient with acute left CVA with right leg weakness need close monitoring of blood pressure blood sugars and gait assessment. Certification: Based on the above findings, I certify that this patient is confined to the home and needs intermittent [facility] care, physical therapy and/or speech therapy, or continues to need occupational therapy. The patient is under my care, and I have initiated the establishment of the plan of care. The patient will be followed by a physician who will periodically review the plan of care.
--- NOTE | 2020-06-06 16:23 | MHC.STROKE ---
Addendum entered by Norma Fitzgerald RN 06/08/20 11:51: LATE ENTRY FOR 06/06/20 0163, I DID VERIFY WITH CARLINE BRIONES RN THAT SHE DID PROVIDE STROKE EDUCATION, INCLUDING CALLING 911 IF SYMPTOMS RETURN, S&S OF STROKE REVIEWED, RISK FACTORS, DISCHARGE MEDICATIONS REVIEWED, NEED FOR FOLLOW UP WITH HER PCP. PATIENT IS MAKING AN APPOINTMENT WITH HER PCP WHEN SHE GETS HOME. Original Note: 1420, walk in with right sided weakness, NIHSS = 4, Out of the Window for TPA, unknown onset but over [address] Benito[address] done, Passed Swallow Screen, Stroke Order Set used. On 06/05/20 1136 MRI was + for left precentral gyrus ischemic stroke. Neurology consult done by Dr. Benito. 06/06/[address] Arrington, she said that the patient wants to go home and she has educated the patient regarding her stroke. The completion of the stroke work up can be done outpatient. She was seen by PT and case management. She will be discharged with [facility] services. I will contact the [facility] and provide the Stroke Education Booklet for them to review with the patient. I will verify that these instructions were reviewed at the time of discharge as well. All Stroke Measures were met. Verification on the stroke education is pending.
== END 2020-06-06 15:53 | disposition home health service (06) | DRG 66 ==
LOC: HO.ED 23:22 → HO.S3 06-06 11:11
PROVIDERS: Student in an Organized Health Care Education/Training Program; Admitting Provider Hospitalist; Emergency Provider Emergency Medicine Emergency Medical Services; PCP Internal Medicine; Visit Provider Hospitalist
DX: I63.89 Other cerebral infarction (principal); R29.898 Other symptoms and signs involving the musculoskeletal system; E03.9 Hypothyroidism, unspecified; I10 Essential (primary) hypertension; R29.704 NIHSS score 4; Z88.0 Allergy status to penicillin; Z88.5 Allergy status to narcotic agent; Z88.6 Allergy status to analgesic agent; Z91.013 Allergy to seafood; Z91.81 History of falling; Z20.822 Contact with and (suspected) exposure to COVID-19; Z79.02 Long term (current) use of antithrombotics/antiplatelets; Z79.890 Hormone replacement therapy; Z79.899 Other long term (current) drug therapy
CPT/HCPCS: 36415; 70450; 70551; 80048; 80053; 80061; 81003; 83690; 84484; 85025; 85610; 85730; 87635; 93005; 97161; 99218; 99285

== ENCOUNTER 2020-07-06 13:17 | Outpatient (REF) | payer MEDICARE, MEDICAID, SELFPAY ==
--- NOTE | ~2020-07-06 | US_ITS ---
EXAMINATION: US VENOUS ULTRASOUND WITH DOPPLER LOWER EXTREMITY, RIGHT CLINICAL INFORMATION: Swelling. COMPARISON: None TECHNIQUE: Ultrasound of the deep veins is performed from the hip to the calf with compression sonography and color and pulse Doppler assessment. Spectral analysis with color-flow imaging is performed. FINDINGS: The right common femoral vein is patent. There is hypoechoic material and absent flow seen in the right superficial femoral, popliteal and peroneal veins suggestive of acute DVT. The visualized posterior tibial vein is patent. The right profunda is patent. The visualized right greater saphenous vein in the upper thigh is patent. The left common femoral vein is patent. There is no Chu's cyst. US/US venous duplex LE RT IMPRESSION: DVT of the right femoral, popliteal and peroneal veins. Findings were communicated by to Dr. Weber by telephone on 07/06/2020 at 3:10 PM.
== END 2020-07-06 13:18 | disposition home or self-care (01) ==
LOC: HO.US 13:17
PROVIDERS: Visit Provider Internal Medicine
DX: R60.0 Localized edema (principal)
CPT/HCPCS: 93971

== ENCOUNTER 2020-07-19 12:41 | Outpatient (REF) | payer MEDICARE, MEDICAID, SELFPAY ==
[2020-07-19 13:48] LABS: MANUAL DIFF FLAG NO
[2020-07-19 13:55] LABS: Basophils Percent Auto 0.3 % (0-2); Eosinophils Absolute Auto 0.1 X10*3/uL (0.0-0.4); Eosinophils Percent Auto 1.4 % (0-4); Hematocrit 38.1 % (37-47); Hemoglobin 11.7 g/dl (12.0-16.0); Imm Gran Abs Auto 0.08 X10*3/uL (0.00-0.03); Imm Gran Pct Auto 2.3 % (0.0-0.4); Lymphocytes Absolute Auto 1.3 X10*3/uL (1.2-4.9); Lymphocytes Percent Auto 35.9 % (20-40); Mean Corpuscular HGB Conc 30.7 g/dl (31.0-35.0); Mean Corpuscular Hemoglobin 26.1 pg (27.0-33.0); Mean Corpuscular Volume 84.9 fL (80-98); Mean Platelet Volume 11.2 fL (9.4-12.3); Monocytes Absolute Auto 0.3 X10*3/uL (0.1-1.2); Monocytes Percent Auto 9.6 % (2-11); Neutrophils Absolute Auto 1.8 X10*3/uL (2.0-8.3); Neutrophils Percent Auto 50.5 % (45-73); Platelet Count 173 X10*3/uL (160-400); Red Blood Count 4.49 X10*6/uL (4.20-5.50); Red Cell Distribution Width 15.8 % (11.0-16.0); White Blood Count 3.5 X10*3/uL (4.8-10.8)
[2020-07-19 14:51] LABS: Alanine Aminotransferase 7 U/L (0-31); Albumin Level 4.3 g/dL (3.5-5.0); Alkaline Phosphatase 62 U/L (39-117); Anion Gap 10 (12-20); Aspartate Amino Transferase 10 U/L (5-31); Bilirubin Total 0.8 mg/dL (0.0-1.0); Blood Urea Nitrogen 13 mg/dL (9-16); Calcium 9.2 mg/dL (8.4-10.2); Carbon Dioxide 30 mmol/L (22-29); Chloride 106 mmol/L (96-108); Cholesterol 211 mg/dL; Estimated Glomerular Filt Rate > 60; Glucose Random 86 mg/dL (60-115); HDL Cholesterol 58 mg/dL; LDL Cholesterol Calculated 132 mg/dl; Potassium 3.8 mmol/L (3.3-5.1); Sodium 142 mmol/L (135-145); Total Protein 7.4 g/dL (6.5-8.0); Triglycerides 108 mg/dL
== END 2020-07-19 12:42 | disposition home or self-care (01) ==
LOC: HO.LAB 12:41
PROVIDERS: PCP Internal Medicine; Visit Provider Internal Medicine
DX: E03.9 Hypothyroidism, unspecified (principal); E78.00 Pure hypercholesterolemia, unspecified; I10 Essential (primary) hypertension; I63.9 Cerebral infarction, unspecified; R26.0 Ataxic gait
CPT/HCPCS: 36415; 80053; 80061; 85025

== ENCOUNTER 2021-04-15 15:43 | Outpatient (REF) | payer MEDICARE, MEDICAID, SELFPAY ==
--- NOTE | ~2021-04-15 | XR_ITS ---
EXAMINATION: XR BILATERAL HIPS CLINICAL INFORMATION: Pain COMPARISON: None TECHNIQUE: AP and frog-leg lateral views of each hip FINDINGS: No acute fracture or dislocation. Femoral heads are spherical. Mild bilateral hip joint space narrowing. Small bilateral acetabular marginal osteophytes. Mild bilateral sacroiliac arthrosis. No suspicious osseous lesions. Soft tissues unremarkable. XR/XR hip LT min 2V IMPRESSION: [id number] bilateral hip arthrosis.
--- NOTE | ~2021-04-15 | XR_ITS ---
EXAMINATION: XR BILATERAL HIPS CLINICAL INFORMATION: Pain COMPARISON: None TECHNIQUE: AP and frog-leg lateral views of each hip FINDINGS: No acute fracture or dislocation. Femoral heads are spherical. Mild bilateral hip joint space narrowing. Small bilateral acetabular marginal osteophytes. Mild bilateral sacroiliac arthrosis. No suspicious osseous lesions. Soft tissues unremarkable. XR/XR hip RT min 2V IMPRESSION: [id number] bilateral hip arthrosis.
[2021-04-15 15:56] LABS: MANUAL DIFF FLAG NO
[2021-04-15 16:50] LABS: Basophils Percent Auto 0.3 % (0-2); Eosinophils Percent Auto 0.5 % (0-4); Hematocrit 38.7 % (37.0-47.0); Hemoglobin 11.9 g/dl (12.0-16.0); Imm Gran Abs Auto 0.05 X10*3/uL (0.00-0.03); Imm Gran Pct Auto 1.4 % (0.0-0.4); Lymphocytes Absolute Auto 1.5 X10*3/uL (1.2-4.9); Lymphocytes Percent Auto 40.9 % (20-40); Mean Corpuscular HGB Conc 30.7 g/dl (31.0-35.0); Mean Corpuscular Hemoglobin 25.4 pg (27.0-33.0); Mean Corpuscular Volume 82.5 fL (80.0-98.0); Mean Platelet Volume 11.2 fL (9.4-12.3); Monocytes Absolute Auto 0.4 X10*3/uL (0.1-1.2); Neutrophils Absolute Auto 1.7 x10*3/uL (2.0-8.3); Neutrophils Percent Auto 44.9 % (45-73); Platelet Count 143 X10*3/uL (160-400); Red Blood Count 4.69 X10*6/uL (4.20-5.50); Red Cell Distribution Width 16.2 % (11.0-16.0); White Blood Count 3.7 X10*3/uL (4.8-10.8)
[2021-04-15 16:59] LABS: D Dimer High Sensitivity 650 NG/ML
[2021-04-15 17:08] LABS: Alanine Aminotransferase 9 U/L (0-31); Albumin Level 4.3 g/dL (3.5-5.0); Alkaline Phosphatase 64 U/L (39-117); Anion Gap 15 (12-20); Aspartate Amino Transferase 13 U/L (5-31); Bilirubin Total 0.9 mg/dL (0.0-1.0); Blood Urea Nitrogen 16 mg/dL (9-16); Calcium 9.4 mg/dL (8.4-10.2); Carbon Dioxide 26 mmol/L (22-29); Chloride 107 mmol/L (96-108); Cholesterol 206 mg/dL; Estimated Glomerular Filt Rate > 60; Glucose Random 84 mg/dL (60-115); HDL Cholesterol 56 mg/dL; LDL Cholesterol Calculated 130 mg/dl; Potassium 4.2 mmol/L (3.3-5.1); Sodium 144 mmol/L (135-145); Total Protein 7.5 g/dL (6.5-8.0); Triglycerides 100 mg/dL
== END 2021-04-15 15:44 | disposition home or self-care (01) ==
LOC: HO.LAB 15:43
PROVIDERS: PCP Internal Medicine; Visit Provider Internal Medicine
DX: M25.552 Pain in left hip (principal); M25.551 Pain in right hip
CPT/HCPCS: 36415; 73502; 80053; 80061; 85025; 85379

== ENCOUNTER 2021-05-11 11:13 | Outpatient (REF) | payer MEDICARE, MEDICAID, SELFPAY ==
--- NOTE | ~2021-05-11 | US_ITS ---
EXAMINATION: US VENOUS ULTRASOUND WITH DOPPLER LOWER EXTREMITY, RIGHT CLINICAL INFORMATION: History of DVT. Swelling. COMPARISON: Previous exam June 2020 TECHNIQUE: Ultrasound of the deep veins is performed from the hip to the calf with compression sonography and color and pulse Doppler assessment. Spectral analysis with color-flow imaging is performed. FINDINGS: There is normal venous compression and respiratory variation and augmented flow. The visualized common femoral vein, superficial femoral vein, profunda femoral vein, popliteal vein, and the trifurcation region shows no evidence of deep venous thrombosis. The previously identified peripheral interstitial femoral popliteal and peroneal vein DVT is no longer seen. There is no significant popliteal fossa cyst. US/US venous duplex LE RT IMPRESSION: No DVT demonstrated in the right lower extremity.
== END 2021-05-11 11:14 | disposition home or self-care (01) ==
LOC: HO.US 11:13
PROVIDERS: Visit Provider Internal Medicine
DX: R60.0 Localized edema (principal)
CPT/HCPCS: 93971

== ENCOUNTER 2021-10-11 17:50 | Outpatient (REF) | payer MEDICARE, MEDICAID, SELFPAY ==
--- NOTE | ~2021-10-11 | MR_ITS ---
EXAMINATION: MR LUMBAR SPINE WITHOUT CONTRAST CLINICAL INFORMATION: Spinal stenosis. COMPARISON: Lumbar spine MRI March 11, 2008. TECHNIQUE: MRI of the lumbar spine was obtained using routine sequences without contrast. FINDINGS: The lumbar vertebral bodies maintain normal heights. There is mild anterolisthesis of L4 on L5 with mild associated disc height loss. Several scattered hemangiomata are noted. No subchondral endplate edema is seen. The distal spinal cord appears normal. The conus medullaris terminates normally at the L1-L2 level. The extraspinal soft tissues are within normal limits. SPINAL LEVELS: L1-L2: No posterior disc abnormality. No spinal canal or neural foraminal stenosis. L2-L3: No posterior disc abnormality. Mild facet arthropathy. Mild right neural foraminal stenosis. No spinal canal stenosis. L3-L4: Disc bulging with mild to moderate facet arthropathy. Moderate to severe left and mild right neural foraminal stenosis. No spinal canal stenosis. L4-L5: Disc bulging with ligamentum flavum infolding and severe facet arthropathy resulting in left subarticular stenosis with compression of the traversing left L5 nerve root. Severe left and moderate right neural foraminal stenosis with compression of the exiting left L4 nerve root. L5-S1: Disc bulging with moderate to severe facet arthropathy. No spinal canal stenosis. Mild to moderate left and moderate to severe right neural foraminal stenosis with compression of the exiting right L5 nerve root. MR/MR lumbar spine wo con IMPRESSION: At L4-L5 there is left subarticular stenosis with compression of the traversing left L5 nerve root and severe left and moderate right neural foraminal stenosis with compression of the exiting left L5 nerve root. At L5-S1 there is severe right neural foraminal stenosis with compression of the exiting right L5 nerve root.
== END 2021-10-11 17:51 | disposition home or self-care (01) ==
LOC: HO.MRI 17:50
PROVIDERS: Visit Provider Internal Medicine
DX: M48.00 Spinal stenosis, site unspecified (principal)
CPT/HCPCS: 72148

== ENCOUNTER 2021-11-15 18:52 | Emergency (ER) | payer MEDICARE, MEDICAID, SELFPAY ==
--- NOTE | ~2021-11-15 | XR_ITS ---
EXAMINATION: XR KNEE, LEFT CLINICAL INFORMATION: Knee pain with effusion COMPARISON: None TECHNIQUE: Four views of the left knee. FINDINGS: Alignment is normal. Mild cartilage space loss in the medial compartment. Soft tissues are unremarkable. No large joint effusion visualized. XR/XR knee LT 3V IMPRESSION: Mild degenerative change. No acute process.
[2021-11-15 19:07] VITALS: BP 154/76; BP 160/92; PULSE 85; PULSE 88; RESP 16; TEMP 37.6; O2SAT 94; O2SAT 96; BMI 28.9
--- NOTE | 2021-11-15 19:30 | ED_ITS ---
HPI - Extremity Problem General Chief complaint: Extremity Injury, Lower Stated complaint: knee pain Time Seen by Provider: 11/15/21 19:15 Source: patient and family Mode of arrival: ambulatory Limitations: no limitations History of Present Illness HPI Narrative: Patient with no significant history of arthritis woke up and when she stood up noticed pain in the left knee with swelling no trauma no history of gout no other joint pain Related Data Home Medications Medication Instructions Recorded Confirmed metoprolol succinate 100 mg 1 tab PO DAILY 06/04/20 06/04/20 tablet,extended release 24 hr Previous Rx's Medication Instructions Recorded atorvastatin 10 mg tablet 40 mg PO DAILY #30 tabs 06/06/20 clopidogrel 75 mg tablet 75 mg PO DAILY #30 tabs 06/06/20 levothyroxine 25 mcg tablet 25 mcg PO DAILY #30 tabs 06/06/20 Allergies Allergy/AdvReac Type Severity Reaction Status Date / Time aspirin Allergy Mild HYPERVENTIL Verified 06/04/20 20:28 ATION Fish Containing Products Allergy Mild HIVES Verified 06/04/20 20:28 fish derived Allergy Mild HIVES Verified 06/04/20 20:28 Penicillins Allergy Mild DIFFICULTY Verified 06/04/20 20:28 BREATHING turkey Allergy Mild HIVES Verified 06/04/20 20:28 acetaminophen [Percocet] Allergy Unknown vomiting Verified 11/05/19 00:00 oxycodone [Percocet] Allergy Unknown vomiting Verified 11/05/19 00:00 penicillin V Allergy Unknown Vomiting Verified 06/04/20 20:28 From Percocet Allergy Unknown UNKNOWN Uncoded 02/12/20 15:05 Review of Systems Review of Systems: Yes all other systems are reviewed and are negative [facility] Social History Social History Advance Directives: No Advance Directives Information Provided: No Physical Exam Vital Signs: Vital Signs: Last Vital Signs Temp 99.7 F 11/15/21 19:07 Pulse 88 11/15/21 19:07 Resp 16 11/15/21 19:07 BP 154/76 H 11/15/21 19:07 Pulse Ox 96 11/15/21 19:07 O2 Del Method 11/15/21 19:07 BMI result Body Mass Index 28.9 Appearance: Alert. Oriented X3. No acute distress. Eyes: PERRLA, No Nystagmus ENT: Pharynx normal. Oral Mucosa moist Neck: Normal inspection. Neck supple. CVS: Normal heart rate and rhythm. Pulses normal. Respiratory: No respiratory distress. Equal air entry bilateral, Abdomen: Soft and nontender. Bowel sounds are present, no mass palpable, no CVA tenderness Skin: Skin warm and dry. Normal skin color. Normal skin turgor. Extremities: No lower extremity edema. No calf tenderness left knee diffuse tenderness with effusion Neuro: Oriented X 3. No motor deficit. MDM - Extremity (Nontraumatic) MDM Narrative Medical decision making narrative: Patient with left knee arthritis with slight effusion Decadron with lidocaine injected in the joint space patient felt better will discharge patient home with walker advised to take Tylenol and follow with orthopedic Procedures Joint Aspiration/Injection Joint Asp./Inject. 1: Time Out Performed: Yes Side of body: left Joint Aspirated: knee Ultrasound Guidance: No Skin Prep: Povidone-Iodine1% Local Anesthetic: lidocaine 2% Amount of anesthesia used (mL): 3 Needle Size Used: 22G Medication Injected, if any: Methylprednisolone Amount of medication injected (mL): 80 Patient Tolerated Procedure: well Complications: none Discharge Plan Discharge Clinical Impression: Osteoarthritis of left knee Patient Disposition: Home, Self-Care Instructions: Osteoarthritis (ED) Additional Instructions: Take Tylenol for pain Follow with PCP for further evaluation treatment Prescriptions: No Action metoprolol succinate 100 mg tablet extended release 24 hr 1 tab PO DAILY atorvastatin 10 mg Tablet 40 mg PO DAILY Qty: 30 0RF clopidogrel 75 mg Tablet 75 mg PO DAILY Qty: 30 0RF levothyroxine 25 mcg Tablet 25 mcg PO DAILY Qty: 30 0RF
[2021-11-15] MEDS: methylPREDNISolone acetate 80 MG VIAL INTRAARTIC (20:59)
[2021-11-15] MEDS: Lidocaine HCl 2 % 20 ML VIAL 5 ML INFILTRATI (20:59)
== END 2021-11-15 22:15 | disposition home or self-care (01) ==
PROVIDERS: Emergency Provider Internal Medicine; PCP Internal Medicine
DX: M17.12 Unilateral primary osteoarthritis, left knee (principal); Z79.899 Other long term (current) drug therapy
CPT/HCPCS: 20610; 73562; 99282; 99284; J1040

== ENCOUNTER 2022-03-06 13:46 | Outpatient (REF) | payer MEDICARE, MEDICAID, SELFPAY ==
[2022-03-06 14:06] LABS: MANUAL DIFF FLAG NO
[2022-03-06 14:59] LABS: Basophils Percent Auto 0.6 % (0-2); Eosinophils Percent Auto 0.3 % (0-4); Hematocrit 34.6 % (37.0-47.0); Hemoglobin 9.8 g/dl (12.0-16.0); Imm Gran Abs Auto 0.03 X10*3/uL (0.00-0.03); Imm Gran Pct Auto 0.9 % (0.0-0.4); Lymphocytes Absolute Auto 1.2 X10*3/uL (1.2-4.9); Lymphocytes Percent Auto 34.8 % (20-40); Mean Corpuscular HGB Conc 28.3 g/dl (31.0-35.0); Mean Corpuscular Hemoglobin 21.3 pg (27.0-33.0); Mean Corpuscular Volume 75.1 fL (80.0-98.0); Monocytes Absolute Auto 0.4 X10*3/uL (0.1-1.2); Monocytes Percent Auto 11.9 % (2-11); Neutrophils Absolute Auto 1.8 x10*3/uL (2.0-8.3); Neutrophils Percent Auto 51.5 % (45-73); Platelet Count 130 X10*3/uL (160-400); Red Blood Count 4.61 X10*6/uL (4.20-5.50); Red Cell Distribution Width 18.6 % (11.0-16.0); White Blood Count 3.5 X10*3/uL (4.8-10.8)
[2022-03-06 15:03] LABS: Alanine Aminotransferase 11 U/L (0-31); Albumin Level 4.4 g/dL (3.5-5.0); Alkaline Phosphatase 72 U/L (39-117); Anion Gap 15 (12-20); Aspartate Amino Transferase 13 U/L (5-31); Bilirubin Total 1.2 mg/dL (0.0-1.0); Blood Urea Nitrogen 13 mg/dL (9-16); Calcium 9.3 mg/dL (8.4-10.2); Carbon Dioxide 27 mmol/L (22-29); Chloride 105 mmol/L (96-108); Cholesterol 198 mg/dL; Estimated Glomerular Filt Rate > 60; Glucose Random 86 mg/dL (60-115); HDL Cholesterol 57 mg/dL; LDL Cholesterol Calculated 126 mg/dl; Potassium 3.9 mmol/L (3.3-5.1); Sodium 143 mmol/L (135-145); Total Protein 7.4 g/dL (6.5-8.0); Triglycerides 79 mg/dL
[2022-03-06 15:26] LABS: Vitamin B12 848 pg/mL (200-900)
[2022-03-06 15:27] LABS: Thyroid Stimulating Hormone 3.42 uIU/mL (0.32-4.0); Vitamin D 25-OH Total 8.8 ng/mL (>30)
== END 2022-03-06 13:47 | disposition home or self-care (01) ==
LOC: HO.LAB 13:46
PROVIDERS: PCP Internal Medicine; Visit Provider Internal Medicine
DX: E03.9 Hypothyroidism, unspecified (principal); E78.00 Pure hypercholesterolemia, unspecified; I10 Essential (primary) hypertension; Z13.31 Encounter for screening for depression; Z86.73 Personal history of transient ischemic attack (TIA), and cerebral infarction without residual deficits
CPT/HCPCS: 36415; 80053; 80061; 82306; 82607; 84443; 85025

== ENCOUNTER 2022-06-26 13:58 | Outpatient (REF) | payer MEDICARE, MEDICAID, SELFPAY ==
[2022-06-26 14:12] LABS: MANUAL DIFF FLAG NO
[2022-06-26 14:30] LABS: Basophils Percent Auto 0.6 % (0-2); Eosinophils Percent Auto 0.6 % (0-4); Hematocrit 32.9 % (37.0-47.0); Hemoglobin 9.4 g/dl (12.0-16.0); Imm Gran Abs Auto 0.03 X10*3/uL (0.00-0.03); Imm Gran Pct Auto 0.9 % (0.0-0.4); Lymphocytes Absolute Auto 1.2 X10*3/uL (1.2-4.9); Lymphocytes Percent Auto 33.2 % (20-40); Mean Corpuscular HGB Conc 28.6 g/dl (31.0-35.0); Mean Corpuscular Hemoglobin 21.6 pg (27.0-33.0); Mean Corpuscular Volume 75.6 fL (80.0-98.0); Mean Platelet Volume 10.7 fL (9.4-12.3); Monocytes Absolute Auto 0.5 X10*3/uL (0.1-1.2); Monocytes Percent Auto 14.2 % (2-11); Neutrophils Absolute Auto 1.8 x10*3/uL (2.0-8.3); Neutrophils Percent Auto 50.5 % (45-73); Platelet Count 127 X10*3/uL (160-400); Red Blood Count 4.35 X10*6/uL (4.20-5.50); Red Cell Distribution Width 18.2 % (11.0-16.0); White Blood Count 3.5 X10*3/uL (4.8-10.8)
[2022-06-26 15:13] LABS: Ferritin 6 ng/mL (10-250)
== END 2022-06-26 13:59 | disposition home or self-care (01) ==
LOC: HO.LAB 13:58
PROVIDERS: PCP Internal Medicine; Visit Provider Internal Medicine
DX: D50.8 Other iron deficiency anemias (principal); E03.9 Hypothyroidism, unspecified; E55.9 Vitamin D deficiency, unspecified; E78.00 Pure hypercholesterolemia, unspecified
CPT/HCPCS: 36415; 82728; 85025

== ENCOUNTER 2022-11-21 09:52 | Day surgery (SDC) | payer MEDICARE, MEDICAID, SELFPAY ==
--- NOTE | 2022-09-28 11:07 | HO.ANESPROP2 ---
HPI - Anesthesia Eval Consult details Narrative: 81yo F for Upper Endoscopy and Colonoscopy Plavix for hx CVA Last PCP note requested PMFSH Active Problems Active Problems: All Active Problems (Updated 09/28/22 @ 10:30 by Amy Amaya RN) Cerebrovascular accident (Acute) Right leg weakness (Acute) Past Medical History Medical History (Updated 09/28/22 @ 10:30 by Amy Amaya RN) Anemia Aneurysm CVA (cerebral vascular accident) DVT (deep venous thrombosis) Elevated cholesterol HTN (hypertension) Vein disorder Surgical History Surgical History (Updated 09/28/22 @ 10:30 by Amy Amaya RN) H/O: section Meds Allergies Allergy/AdvReac Type Severity Reaction Status Date / Time aspirin Allergy Mild HYPERVENTIL Verified 06/04/20 20:28 ATION Fish Containing Products Allergy Mild HIVES Verified 06/04/20 20:28 fish derived Allergy Mild HIVES Verified 06/04/20 20:28 Penicillins Allergy Mild DIFFICULTY Verified 06/04/20 20:28 BREATHING turkey Allergy Mild HIVES Verified 06/04/20 20:28 acetaminophen [Percocet] Allergy Unknown vomiting Verified 11/05/19 00:00 oxycodone [Percocet] Allergy Unknown vomiting Verified 11/05/19 00:00 penicillin V Allergy Unknown Vomiting Verified 06/04/20 20:28 From Percocet Allergy Unknown UNKNOWN Uncoded 02/12/20 15:05 Home Medications Medication Instructions Recorded Confirmed Last Taken Type metoprolol succinate 100 mg 1 tab PO DAILY 06/04/20 06/04/20 06/04/20 00:00 History tablet,extended release 24 hr Exam Exam Date and Time: September 28, [id number] Pertinent Lab Results Pertinent Lab Results: Laboratory Tests 03/06/22 06/26/22 14:04 14:10 WBC 3.5 L Hgb 9.4 L Hct 32.9 L Plt Count 127 L Sodium 143 Potassium 3.9 Chloride 105 Carbon Dioxide 27 BUN 13 Creatinine 0.85 Assessment and Plan Assessment Anesthesia Assessment: Chart Reviewed
--- NOTE | 2022-10-30 13:54 | HO.ANESPROP2 ---
Documented by User: Albertina Ramírez NP 11/14/22 14:31 HPI - Anesthesia Eval Consult details Narrative: 82yo F for Upper Endoscopy and Colonoscopy, 11/21/22 Clopidogrel for DVT/CVA PMFSH Active Problems Active Problems: All Active Problems (Updated 09/28/22 @ 10:30 by Amy Amaya RN) Cerebrovascular accident (Acute) Right leg weakness (Acute) Past Medical History Medical History (Updated 09/28/22 @ 10:30 by Amy Amaya RN) Anemia Aneurysm CVA (cerebral vascular accident) DVT (deep venous thrombosis) Elevated cholesterol HTN (hypertension) Vein disorder Surgical History Surgical History (Updated 09/28/22 @ 10:30 by Amy Amaya RN) H/O: section Social History Social History Patient Tobacco Use Status: Never used Tobacco Have you been hit, kicked, punched, or otherwise hurt by someone within the past year? If so, by whom?: No Are you DNR?: No Advance Directives: No Advance Directives Information Provided: Yes Recently lost weight without trying: No Eating poorly because of decreased appetite: No Nutrition Risks: No Nutritional Risk Patient : No Meds Allergies Allergy/AdvReac Type Severity Reaction Status Date / Time aspirin Allergy Mild HYPERVENTIL Verified 06/04/20 20:28 ATION Fish Containing Products Allergy Mild HIVES Verified 06/04/20 20:28 Penicillins Allergy Mild DIFFICULTY Verified 06/04/20 20:28 BREATHING turkey Allergy Mild HIVES Verified 06/04/20 20:28 acetaminophen [Percocet] Allergy Unknown vomiting Verified 11/05/19 00:00 oxycodone [Percocet] Allergy Unknown vomiting Verified 11/05/19 00:00 penicillin V Allergy Unknown Vomiting Verified 06/04/20 20:28 Home Medications Medication Instructions Recorded Confirmed Last Taken Type metoprolol succinate 100 mg 1 tab PO DAILY 06/04/20 06/04/20 06/04/20 00:00 History tablet,extended release 24 hr Exam Exam Date and Time: October 30, 2022 1354 Pertinent Lab Results Pertinent Lab Results: Laboratory Tests 03/06/22 06/26/22 14:04 14:10 WBC 3.5 L Hgb 9.4 L Hct 32.9 L Plt Count 127 L Sodium 143 Potassium 3.9 Chloride 105 Carbon Dioxide 27 BUN 13 Creatinine 0.85 Assessment and Plan Assessment Anesthesia Assessment: Chart Reviewed Documented by User: Moses Felder MD 11/21/22 12:07 [facility] Past Medical History Medical History (Updated 09/28/22 @ 10:30 by Amy Amaya RN) Anemia Aneurysm CVA (cerebral vascular accident) DVT (deep venous thrombosis) Elevated cholesterol HTN (hypertension) Vein disorder Family History Family history of problems with anesthesia: No Surgical History Surgical History (Updated 09/28/22 @ 10:30 by Amy Amaya RN) H/O: section History of Problems with Anesthesia: No Social History Social History Patient Tobacco Use Status: Never used Tobacco Have you been hit, kicked, punched, or otherwise hurt by someone within the past year? If so, by whom?: No Are you DNR?: No Advance Directives: No Advance Directives Information Provided: Yes Recently lost weight without trying: No Eating poorly because of decreased appetite: No Nutrition Risks: No Nutritional Risk Patient : No Meds Allergies Allergy/AdvReac Type Severity Reaction Status Date / Time aspirin Allergy Mild HYPERVENTIL Verified 06/04/20 20:28 ATION Fish Containing Products Allergy Mild HIVES Verified 06/04/20 20:28 Penicillins Allergy Mild DIFFICULTY Verified 06/04/20 20:28 BREATHING turkey Allergy Mild HIVES Verified 06/04/20 20:28 acetaminophen [Percocet] Allergy Unknown vomiting Verified 11/05/19 00:00 oxycodone [Percocet] Allergy Unknown vomiting Verified 11/05/19 00:00 penicillin V Allergy Unknown Vomiting Verified 06/04/20 20:28 Home Medications Medication Instructions Recorded Confirmed Last Taken Type metoprolol succinate 100 mg 1 tab PO DAILY 06/04/20 06/04/20 06/04/20 00:00 History tablet,extended release 24 hr Exam Airway Mallampati Class: II TM Dist: >3cm Neck ROM: Limited Heart: rrr Lungs: cta Assessment and Plan Assessment Anesthesia Assessment: Anesthesia Plan Discussed Final Anesthetic Review Family History of Problems with Anesthesia: No History of Problems with Anesthesia: No NPO: Yes ASA Class: IV Final Preanesthetic Review: No Changes in Pt Med Stat and Anes Risks/Benef Reviewed Patient Risk: High Procedure Risk: Intermediate Anesthetic Plan Anesthetic Plan: Agree w/ Assess. and Plan Disposition: Standard PACU
[2022-11-21 11:27] VITALS: BP 171/72; PULSE 60; RESP 18; TEMP 36.2; O2SAT 94; BMI 23.5; BMI 26.6
--- NOTE | 2022-11-21 12:16 | MHC.SHP ---
Pre-Procedural Eval Section A Date of Service: 11/21/22 Section B Chief Complaint: Iron deficiency anemia, unspecified Details of Present Illness: see H*P no changes Relevant Family History (Specify if Yes): No Relevant Social History: None Present Medications: see Short Stay Collaborative assessment Medical History: No relevant PMH History of Previous Operations: No relevant previous surgery Allergies: Allergies Allergy/AdvReac Type Severity Reaction Status Date / Time aspirin Allergy Mild HYPERVENTIL Verified 06/04/20 20:28 ATION Fish Containing Products Allergy Mild HIVES Verified 06/04/20 20:28 Penicillins Allergy Mild DIFFICULTY Verified 06/04/20 20:28 BREATHING turkey Allergy Mild HIVES Verified 06/04/20 20:28 acetaminophen [Percocet] Allergy Unknown vomiting Verified 11/05/19 00:00 oxycodone [Percocet] Allergy Unknown vomiting Verified 11/05/19 00:00 penicillin V Allergy Unknown Vomiting Verified 06/04/20 20:28 Review of Systems Sugical H&P ROS: Negative: Constitution, Cardiovascular, Respiratory, Neurological, Psychiatric, Hem-Onc, Allergic/Immunologic, Gastrointestinal, Genitourinary, Musculoskeletal, Integumentary, Endocrine and Eyes/Ears/Nose/Throat Exam Surgical H&P Exam: Normal: HEENT, Normal: Heart, Normal: Lungs, Normal: Extremities, Normal: Abdomen, Normal: Skin and Normal: Neurological Plan Diagnosis/Plan: Change (colonoscopy cancelled as pt did not have good results with prep) I have reviewed the history and physical and performed a pertinent physical examination on my patient. No changes have occurred unless specified. Time Spent With Patient Time: Total time managing care of this patient today ____ minutes.
--- NOTE | 2022-11-21 12:45 | P.BOP_ITS ---
Brief Operative Note Date of Service: 11/21/22 Pre-op diagnosis: iron def anemia Post-op diagnosis: same Procedure: EGD Surgeon: Chu Johnson Anesthesia: MAC Was an Orthopedic Physician Assistant used for this Procedure?: No Estimated blood loss (mL): 2 Pathology: other Condition: stable Disposition: PACU
[2022-11-21 12:50] VITALS: BP 140/80; PULSE 67; RESP 16; TEMP 36.6; O2SAT 98
--- NOTE | 2022-11-21 13:01 | OP_ITS ---
DATE OF SERVICE: 11/21/2022 SURGEON: Chu Johnson MD INDICATIONS: Iron deficiency anemia. PREOPERATIVE DIAGNOSIS: POSTOPERATIVE DIAGNOSIS: PROCEDURE PERFORMED: Upper endoscopy with biopsy. ESTIMATED BLOOD LOSS: COMPLICATIONS: ANESTHESIA: Monitored anesthesia care. ASSISTANTS: SPECIMENS: DESCRIPTION OF PROCEDURE: A history and physical was performed. The risks and benefits of the procedure were explained to the patient. Informed consent was obtained. The patient was placed in the left lateral decubitus position. The Olympus video gastroscope was introduced into the esophagus, stomach, and duodenum. Examination was performed. The scope was removed. She tolerated the procedure well and was returned to the recovery area in stable condition. The procedure had originally been scheduled as an upper endoscopy and colonoscopy but the patient did not follow the prep instructions correctly and the colonoscopy was canceled. FINDINGS: Esophagus: The esophagus was normal. There was no esophagitis. Stomach: The stomach showed erosive gastritis involving the antrum with multiple less than 10 mm linear antral erosions and some mild heaping up of the mucosa in the antrum. No definite ulcer was identified. No definite malignancy was identified. Duodenum: The bulb and 2nd portion were normal. Biopsies were obtained from the antrum and from the 2nd portion of the duodenum. IMPRESSION: Erosive gastritis. RECOMMENDATION: 1. Follow up the biopsy results. 2. Begin omeprazole 20 mg daily. MD DANIA Arrington/VICTORIANO / [id number] MTDD
[2022-11-21 13:05] VITALS: BP 172/95; PULSE 61; RESP 16; O2SAT 98
[2022-11-21 13:20] VITALS: BP 173/90; PULSE 61; RESP 16; O2SAT 98
[2022-11-21 13:35] VITALS: BP 173/93; PULSE 61; RESP 16; TEMP 36.8; O2SAT 95
== END 2022-11-21 14:33 | disposition home or self-care (01) ==
PROVIDERS: PCP Internal Medicine; Visit Provider Internal Medicine Gastroenterology
PROC: (CPT 43239; principal; 2022-11-21 10:50)
DX: D50.9 Iron deficiency anemia, unspecified (principal); K29.60 Other gastritis without bleeding; I10 Essential (primary) hypertension; E78.5 Hyperlipidemia, unspecified; Z86.73 Personal history of transient ischemic attack (TIA), and cerebral infarction without residual deficits; Z86.718 Personal history of other venous thrombosis and embolism; Z79.899 Other long term (current) drug therapy; Z79.02 Long term (current) use of antithrombotics/antiplatelets; Z88.0 Allergy status to penicillin; Z88.8 Allergy status to other drugs, medicaments and biological substances
CPT/HCPCS: 43239; 88305; 88342

== ENCOUNTER 2023-04-10 12:48 | Outpatient (AMB) | payer MEDICARE, MEDICAID, SELFPAY ==
--- NOTE | 2023-04-10 12:50 | A.OFFVIS_ITS ---
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 Accompanied by: Daughter Allergies aspirin Allergy (Mild, Verified 06/04/20 20:28) HYPERVENTILATION Fish Containing Products Allergy (Mild, Verified 06/04/20 20:28) HIVES Penicillins Allergy (Mild, Verified 06/04/20 20:28) DIFFICULTY BREATHING turkey Allergy (Mild, Verified 06/04/20 20:28) HIVES acetaminophen [Percocet] Allergy (Unknown, Verified 11/05/19 00:00) vomiting oxycodone [Percocet] Allergy (Unknown, Verified 11/05/19 00:00) vomiting penicillin V Allergy (Unknown, Verified 06/04/20 20:28) Vomiting Medication List - Last Reconciled 04/10/23 by Goldy Allan MD atorvastatin 40 mg PO DAILY clopidogrel 75 mg PO DAILY levothyroxine 25 mcg PO DAILY metoprolol succinate ER 100 mg PO DAILY HPI HPI Comments History of Present Illness Details Thank you for referring Linda in cardiology consultation today status post open-heart surgery. She underwent ascending aortic aneurysm repair in November this year associated with PFO for surgical repair. Patient had a stroke 2 and half years ago. She also has longstanding history of hypertension. She complains of pain at the sternal surgical site. Although this is getting better. Denies any other symptoms. Was not schedule for cardiac rehab. She is taking all her medications regularly. Denies any exertional chest pain, shortness of breath, lightheadedness, syncope. She had no significant coronary disease prior to the ascending aortic aneurysm by cardiac catheterization. [facility] Medical History Vein disorder HTN (hypertension) DVT (deep venous thrombosis) CVA (cerebral vascular accident) Aneurysm Anemia Elevated cholesterol Surgical History S/P ascending aortic aneurysm repair H/O: section Social History Patient Tobacco Use Status: Never used Tobacco Review of Systems Const Denies chills, Denies fatigue, Denies fever(s), Denies frequent falls, Denies weakness, Denies weight gain and Denies weight loss ENT Denies dizziness Card Denies chest pain, Denies leg edema, Denies lightheadedness, Denies palpitations, Denies dyspnea, Denies dyspnea on exertion, Denies orthopnea and Denies other (loss of consciousness) Resp Denies cough, Denies dyspnea and Denies dyspnea on exertion GI Denies hematochezia and Denies change in stool character Musc Denies abnormal gait, Denies muscle weakness, Denies numbness, Denies radiating pain into limb and Denies tingling Neuro Denies abnormal gait, Denies dizziness, Denies frequent falls, Denies numbness, Denies tingling and Denies weakness Endo Denies fatigue and Denies palpitations Physical Exam Vital Signs: Last Vital Signs Pulse 72 04/10/23 12:51 BP 120/70 04/10/23 12:51 BMI result Body Mass Index 23.5 Const General: cooperative, comfortable, no acute distress, alert and awake Nutritional Appearance: thin and other (Frail elderly woman) Orientation/consciousness: patient oriented x3 Limitations: no limitations HEENT Head: Yes normocephalic and Yes atraumatic Neck Neck: Yes trachea midline, Yes supple and Yes no JVD Resp Effort & Inspection: normal respiratory effort Auscultation: clear to auscultation bilaterally Cardio Jugular venous distension: no JVD Palpation: normal PMI Rate: regular rate Rhythm: regular rhythm Heart sounds: S1 normal heart sound present, S2 normal heart sound present, no click, no gallops, no murmurs and no rubs GI Auscultation: normal bowel sounds Skin General skin exam: no rashes or lesions noted Neuro General: patient oriented x3 and no focal motor deficits Extrem General: Yes no clubbing, cyanosis or edema Assessment & Plan Assessment & Plan (1) S/P ascending aortic aneurysm repair: Comment: November 2022 for ascending aortic aneurysm of 5.1 cm associated with PFO closure. Normal coronary arteries Code(s): Z98.890 - Other specified postprocedural states; Z86.79 - Personal history of other diseases of the circulatory system Plan: Status post ascending aortic aneurysm repair for ascending aortic aneurysm at 5.1 cm. No clear family history. Will refer her for genetic study for family screening perspective. Continue aggressive control of blood pressure. Will obtain echocardiogram in near future to assess for LV systolic and diastolic function ascending aortic size. Refer for phase 2 cardiac rehabilitation. She is also status post PFO closure and had a stroke 2 and half years ago. Hopefully clopidogrel should be an adequate therapy. Continue risk factor modification. Statin therapy has been requested with target goal LDL less than 100 mg/dL. (2) HTN (hypertension): Code(s): I10 - Essential (primary) hypertension Plan: Hypertension which is currently well optimized advised to monitor blood pressure at home maintain a log. Goal blood pressure less than 130/84. Low-salt diet was advised. Advised to maintain activity level as tolerated. Will follow up in the clinic in 1 year's time, sooner p.r.n.. Thank you for allowing me to partake in her care Orders: Orders Cardiac Rehab Today Z86.79 - Personal history of other diseases of the circulatory system, Z95.2 - Presence of prosthetic heart valve, Z98.890 - Other specified postprocedural states CA echo transthoracic complete Today Z86.79 - Personal history of other diseases of the circulatory system, Z98.890 - Other specified postprocedural states Referrals Genetics Referral Z86.79 - Personal history of other diseases of the circulatory system, Z98.890 - Other specified postprocedural states Coding Level of Care Code New Pt Level 4 (77911) Diagnoses S/P ascending aortic aneurysm repair Z98.890; Z86.79 HTN (hypertension) I10
[2023-04-10 12:51] VITALS: BP 120/70; PULSE 72; BMI 23.5
== END 2023-04-10 13:09 | disposition home or self-care (01) ==
PROVIDERS: PCP Internal Medicine; Visit Provider Internal Medicine Cardiovascular Disease
DX: Z98.890 Other specified postprocedural states (principal); Z86.79 Personal history of other diseases of the circulatory system; I10 Essential (primary) hypertension
CPT/HCPCS: 99204

== ENCOUNTER → 2023-04-10 12:48 | Outpatient (BNVA) | payer MEDICARE, MEDICAID, SELFPAY | PROVIDERS: PCP Internal Medicine; Visit Provider Internal Medicine Cardiovascular Disease | DX: I10 Essential (primary) hypertension (principal); Z98.890 Other specified postprocedural states; Z86.79 Personal history of other diseases of the circulatory system | CPT/HCPCS: 99202 ==

== ENCOUNTER → 2023-04-24 13:25 | Outpatient (REF) | payer MEDICARE, MEDICAID, SELFPAY ==
--- NOTE | 2023-04-24 13:29 | CA_ITS ---
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 Normal LV ejection fraction 55-60% with mild LVH with impaired relaxation filling pattern 2. Mildly dilated left atrium 3. Calcific aortic valve changes noted with mild aortic regurgitation 4. Calcific mitral valve changes noted with mild mitral stenosis cannot be entirely ruled out on this study 5. Ascending aorta is at upper limits of normal in size 6. No gross pericardial effusion Findings Left Ventricle Normal left ventricular size and systolic function. There is mildly increased left ventricular wall thickness. The visually estimated ejection fraction is between 55-60%. Spectral Doppler is indicative of an impaired relaxation filling pattern. Right Ventricle Normal right ventricular cavity size and systolic function. Atria The left atrium is mildly dilated. There is no evidence of interatrial shunt. The right atrium is likely dilated. Aortic Valve There is mild calcification of the aortic valve. There is mild thickening of the aortic valve. There is no aortic valve stenosis. There is mild aortic valve regurgitation. Mitral Valve There is mild anterior and moderate posterior mitral leaflet thickening. The posterior mitral leaflet has restricted mobility. There is moderate mitral annular calcification. There is trace mitral valve regurgitation. mild mitral stenosis cannot be ruled out Pulmonic Valve The pulmonic valve is likely normal. Tricuspid Valve Likely normal tricuspid valve structure and function. Tricuspid regurgitation envelope is inadequate for calculation of right ventricular systolic pressure. Normal right atrial pressure. Great Vessels The pulmonary artery was not well visualized. Venous The inferior vena cava is normal in size and collapses greater than 50% with inspiration. Pericardium/Pleural There is no evidence of pericardial effusion. Prior Study Comparison No prior study available for comparison. Measurements 2D Linear Measurements IVSd: 1.26 0.6-0.9/0.6-1.0 cm LVIDd: 3.44 3.9-5.3/4.2-5.9 cm LVIDd Index: 1.94 2.4-3.2/2.2-3.1 cm/m2 LVIDs: 2.18 2.0-3.6 cm LVPWd: 1.22 0.7-1.1 cm Ao Root: 3.70 2.1-3.5 cm LA Diam: 2.80 2.7-3.8/3.0-4.0 cm LAIDs Index: 1.58 1.5-2.3 cm/m2 LV Mass: 173.44 67-162/88-224 g LV Mass Index: 97.99 43-95/49-115 g/m2 LVOT Diam: 2.10 3.0+(-)1.3 cm Mitral Valve MV Pk E: 0.79 MV PK A: 1.37 MV Decel Time: 193.00 E/A: 0.60 E'Lateral: 5.77 E'Medial: 4.13 E/E' Med: 19.20 E/E' Lat: 13.70 PHT: 56.00 MVA PHT: 3.93 Decel [place]: 4.11 Aortic Valve AoV Pk Samy: 1.65 AoV Mn Samy: 1.02 AoV VTI: 0.29 AoV Pk Grad: 11.00 Aov Mn Grad: 5.00 SIVAN Cont.VTI: 2.68 AI Pk Samy: 3.58 AI [place]: 3.85 LVOT LVOT Pk Samy: 1.24 LVOT Mn Samy: 0.84 LVOT VTI: 0.23 LVOT Pk Grad: 6.00 LVOT Mn Grad: 3.00 LVOT Diam: 2.10 LVOT Area: 3.46 Diastolic Function MV Pk E: 0.79 MV Pk A: 1.37 E/A: 0.60 E'Medial: 4.13 E/E' Med: 19.20 E' Laterial: 5.77 E/E' Lat: 13.70 Right Ventricle TAPSE (mm): 13.80 TVS' Samy: 8.38 Tricuspid Valve TR Pk Samy: 2.33 TR Pk Grad: 22.00 Great Vessels Aorta Ao Root-2D: 3.70 2.0-3.7 cm Ao Asc: 3.60 2.1-3.4 cm Pulmonary Valve PV Pk Samy: 1.05 Peak PV Grad: 4.00 Updated in Other Vendor System with Status of Final Goldy Allan MD electronically signed on 04/25/2023 4:13:24 PM with status of Final
== END ==
LOC: HO.CARD 13:25
PROVIDERS: PCP Internal Medicine; Visit Provider Internal Medicine Cardiovascular Disease
DX: Z98.890 Other specified postprocedural states (principal); Z86.79 Personal history of other diseases of the circulatory system
CPT/HCPCS: 93306

== ENCOUNTER → 2023-04-24 13:29 | Outpatient (BNV) | payer MEDICARE, MEDICAID, SELFPAY | PROVIDERS: PCP Internal Medicine; Visit Provider Internal Medicine Cardiovascular Disease | DX: I35.1 Nonrheumatic aortic (valve) insufficiency (principal); I34.81 Nonrheumatic mitral (valve) annulus calcification | CPT/HCPCS: 93306 ==

== ENCOUNTER 2023-08-13 14:17 | Outpatient (REF) | payer MEDICARE, MEDICAID, SELFPAY ==
[2023-08-13 14:47] LABS: MANUAL DIFF FLAG NO
[2023-08-13 15:13] LABS: Basophils Percent Auto 0.3 % (0-2); Eosinophils Percent Auto 0.3 % (0-4); Hematocrit 35.2 % (37.0-47.0); Hemoglobin 10.4 g/dl (12.0-16.0); Imm Gran Abs Auto 0.03 X10*3/uL (0.00-0.03); Lymphocytes Absolute Auto 1.3 X10*3/uL (1.2-4.9); Lymphocytes Percent Auto 42.2 % (20-40); Mean Corpuscular HGB Conc 29.5 g/dl (31.0-35.0); Mean Corpuscular Hemoglobin 22.6 pg (27.0-33.0); Mean Corpuscular Volume 76.4 fL (80.0-98.0); Mean Platelet Volume 10.6 fL (9.4-12.3); Monocytes Absolute Auto 0.4 X10*3/uL (0.1-1.2); Monocytes Percent Auto 14.6 % (2-11); Neutrophils Absolute Auto 1.3 x10*3/uL (2.0-8.3); Neutrophils Percent Auto 41.6 % (45-73); Platelet Count 180 X10*3/uL (160-400); Red Blood Count 4.61 X10*6/uL (4.20-5.50); Red Cell Distribution Width 17.6 % (11.0-16.0)
[2023-08-13 15:55] LABS: Alanine Aminotransferase 7 U/L (0-31); Alkaline Phosphatase 68 U/L (39-117); Anion Gap 13 (12-20); Aspartate Amino Transferase 9 U/L (5-31); Bilirubin Total 0.7 mg/dL (0.0-1.0); Blood Urea Nitrogen 8 mg/dL (9-16); Calcium 9.2 mg/dL (8.4-10.2); Carbon Dioxide 26 mmol/L (22-29); Chloride 106 mmol/L (96-108); Cholesterol 182 mg/dL (<200); Estimated Glomerular Filt Rate > 60; Glucose Random 80 mg/dL (60-115); HDL Cholesterol 53 mg/dL (>40); LDL Cholesterol Calculated 113 mg/dL (<100); Potassium 3.6 mmol/L (3.3-5.1); Sodium 141 mmol/L (135-145); Total Protein 7.8 g/dL (6.5-8.0); Triglycerides 83 mg/dL (<150)
[2023-08-13 16:12] LABS: Thyroid Stimulating Hormone 2.17 uIU/mL (0.32-4.0)
== END 2023-08-13 14:18 | disposition home or self-care (01) ==
LOC: HO.LAB 14:17
PROVIDERS: PCP Internal Medicine; Visit Provider Internal Medicine
DX: D50.8 Other iron deficiency anemias (principal); E03.9 Hypothyroidism, unspecified; E78.00 Pure hypercholesterolemia, unspecified; I10 Essential (primary) hypertension
CPT/HCPCS: 36415; 80053; 80061; 84443; 85025

== ENCOUNTER 2023-09-03 13:30 | Outpatient (RCR) | payer MEDICARE, MEDICAID, SELFPAY | END 2023-09-12 12:42 | disposition home or self-care (01) | LOC: HO.CR 13:30 | PROVIDERS: PCP Internal Medicine; Visit Provider Internal Medicine Cardiovascular Disease | DX: Z95.2 Presence of prosthetic heart valve (principal); Z86.79 Personal history of other diseases of the circulatory system; Z98.890 Other specified postprocedural states | CPT/HCPCS: 93798 ==

== ENCOUNTER 2023-12-03 07:39 | Outpatient (REF) | payer MEDICARE, MEDICAID, SELFPAY ==
--- NOTE | ~2023-12-03 | XR_ITS ---
EXAMINATION: XR SHOULDER, LEFT CLINICAL INFORMATION: Left shoulder pain. COMPARISON: None available. TECHNIQUE: AP and scapular Y views of the left shoulder. FINDINGS: No acute fracture or dislocation. Moderate acromioclavicular joint space narrowing with marginal osteophytes. Mild glenohumeral joint space narrowing with marginal osteophytes. There are scattered calcifications within the distal supraspinatus and infraspinatus tendons, consistent with calcific tendinitis. Partially visualized sternal hardware. XR/XR shoulder LT min 2V IMPRESSION: 1. 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 2. Supraspinatus and infraspinatus calcific tendinitis.
== END 2023-12-03 07:40 | disposition home or self-care (01) ==
LOC: HO.HOSX 07:39
PROVIDERS: Visit Provider Orthopaedic Surgery
DX: M75.42 Impingement syndrome of left shoulder (principal)
CPT/HCPCS: 20610; 73030; 99202; J1010

== ENCOUNTER 2023-12-03 08:17 | Outpatient (AMB) | payer MEDICARE, MEDICAID, SELFPAY ==
[2023-12-03 08:44] VITALS: BMI 22.3
--- NOTE | 2023-12-03 08:44 | MHC.OFFVIS ---
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 Intake Note: Linda is an 83 yr old female who presents with complaints of progressively worsening left shoulder pain. The patient denies any weakness. She states that her pain has gotten worse over the last few months. She has done stretching exercises on her own which improved her range of motion but not her pain. She has also tried Aleve and topical patches which gave her minimal relief. Allergies aspirin Allergy (Mild, Verified 12/03/23 08:44) HYPERVENTILATION Fish Containing Products Allergy (Mild, Verified 12/03/23 08:44) HIVES Penicillins Allergy (Mild, Verified 12/03/23 08:44) DIFFICULTY BREATHING turkey Allergy (Mild, Verified 12/03/23 08:44) HIVES acetaminophen [Percocet] Allergy (Unknown, Verified 12/03/23 08:44) vomiting oxycodone [Percocet] Allergy (Unknown, Verified 12/03/23 08:44) vomiting penicillin V Allergy (Unknown, Verified 12/03/23 08:44) Vomiting Medication List - Last Reconciled 12/03/23 by Grady Grande MD atorvastatin 40 mg PO DAILY clopidogrel 75 mg PO DAILY levothyroxine 25 mcg PO DAILY metoprolol succinate ER 100 mg PO DAILY [facility] Medical History Vein disorder HTN (hypertension) DVT (deep venous thrombosis) CVA (cerebral vascular accident) Aneurysm Anemia Elevated cholesterol Surgical History S/P ascending aortic aneurysm repair H/O: section Social History Patient Tobacco Use Status: Never used Tobacco Physical Exam Vital Signs: BMI result Body Mass Index 22.3 Const Other: Well-nourished well-developed very friendly female awake alert and oriented x3 in no acute distress Extrem Other: Bilateral upper extremity examination shows good capillary refill, no skin lesions noted, normal sensation light touch Left shoulder examination shows almost full range of motion when compared to her right shoulder, 4+ out of 5 strength with supraspinatus testing, positive impingement signs, no instability Office Procedures Joint Injection/Drain Joint Injection/Drain Primary Site: left shoulder Prep: site was prepped using aseptic technique Injected: 40 mg of, DepoMedrol and 1% plain lidocaine Procedure: The patient tolerated the procedure well Coding - Large joint Procedure code (CPT) selection complete Results Reviewed Results Reviewed: X-rays of the patient's left shoulder show moderate acromioclavicular joint narrowing, a type 2 acromion, no acute bony abnormalities Assessment & Plan Assessment & Plan (1) Left shoulder pain: Code(s): M25.512 - Pain in left shoulder Category: Medical Plan Ms. Jimenez presents with left shoulder pain due to impingement syndrome. I had a lengthy discussion with the patient regarding treatment options. The risks and benefits of a left shoulder cortisone injection were discussed at length with the patient. The patient wished to proceed. She tolerated the injection well. She will continue with her home stretching program to prevent stiffness. The do's and don'ts of lifting were discussed at length with the patient. She will follow up with me on an as-needed basis should her symptoms not plateau at an unacceptable level over the next few months. Feel free to call me at any time should questions regarding her orthopedic management arise. Thank you very much for asking me to see this very friendly patient. I spent 20 minutes in reviewing the patient's records and imaging studies, seeing the patient and documenting in the medical record. Orders: Orders XR shoulder LT min 2V 12/05/23 M25.512 - Pain in left shoulder XR shoulder LT min 2V Today M25.512 - Pain in left shoulder AMB Joint Injection/Aspiration Today M25.512 - Pain in left shoulder Coding Level of Care Code New Pt Level 3 (12526) Diagnoses Left shoulder pain M25.512 CPT Codes Coding - 94050 Large joint: 05706 - Large joint ([id number])
== END 2023-12-03 09:02 | disposition home or self-care (01) ==
PROVIDERS: PCP Internal Medicine; Visit Provider Orthopaedic Surgery
DX: M25.512 Pain in left shoulder (principal)
CPT/HCPCS: 20610; 99203

== ENCOUNTER 2023-12-05 11:49 | Outpatient (REF) | payer MEDICARE, MEDICAID, SELFPAY | END 2023-12-05 11:50 | disposition home or self-care (01) | LOC: HO.HOSX 11:49 | PROVIDERS: Visit Provider Orthopaedic Surgery | DX: Z13.89 Encounter for screening for other disorder (principal) ==

== ENCOUNTER 2024-03-04 15:11 | Outpatient (AMB) | payer MEDICARE, MEDICAID, SELFPAY ==
[2024-03-04 15:12] VITALS: BMI 22.3
--- NOTE | 2024-03-04 15:12 | MHC.OFFVIS ---
Vital Signs 03/04/24 15:12 Height 5 ft 6 in Weight 138 lb BMI 22.3 Intake Visit Reasons: Bilateral shoulder pains Intake Note: Linda is a 83 year old female who presents with complaints of bilateral shoulder pains. The patient describes her pains as achy in nature. Most of her pain is along the lateral aspects of her shoulders. She denies any weakness. She has done physical therapy exercises which aggravated her pain. She has also tried Tylenol and anti-inflammatory medicines which gave her minimal relief. She would like to hold off on surgery for as long as possible. Allergies aspirin Allergy (Mild, Verified 03/04/24 15:13) HYPERVENTILATION Fish Containing Products Allergy (Mild, Verified 03/04/24 15:13) HIVES Penicillins Allergy (Mild, Verified 03/04/24 15:13) DIFFICULTY BREATHING turkey Allergy (Mild, Verified 03/04/24 15:13) HIVES acetaminophen [Percocet] Allergy (Unknown, Verified 03/04/24 15:13) vomiting oxycodone [Percocet] Allergy (Unknown, Verified 03/04/24 15:13) vomiting penicillin V Allergy (Unknown, Verified 03/04/24 15:13) Vomiting Medication List - Last Reconciled 03/04/24 by Grady Grande MD atorvastatin 40 mg PO DAILY clopidogrel 75 mg PO DAILY levothyroxine 25 mcg PO DAILY metoprolol succinate ER 100 mg PO DAILY [facility] Medical History Vein disorder HTN (hypertension) DVT (deep venous thrombosis) CVA (cerebral vascular accident) Aneurysm Anemia Elevated cholesterol Surgical History S/P ascending aortic aneurysm repair H/O: section Social History Patient Tobacco Use Status: Never used Tobacco Physical Exam Vital Signs: BMI result Body Mass Index 22.3 Const Other: Well-nourished well-developed very friendly female awake alert and oriented x3 in no acute distress Extrem Other: Bilateral upper extremity examination shows good capillary refill, no skin lesions noted, normal sensation light touch Bilateral shoulder examination shows forward flexion to 170 degrees, external rotation to 50 degrees, internal rotation to level L2, 4+ out of 5 strength with supraspinatus testing, positive impingement signs, no instability Office Procedures Joint Injection/Aspiration Joint Injection/Aspiration Primary Site: left shoulder Prep: site was prepped using aseptic technique Injected: 40 mg of, DepoMedrol and 1% plain lidocaine Procedure: The patient tolerated the procedure well Coding 25669 - Large joint Procedure code (CPT) selection complete Joint Injection/Aspiration Joint Injection/Aspiration Primary Site: right shoulder Prep: site was prepped using aseptic technique Injected: 40 mg of, DepoMedrol and 1% plain lidocaine Procedure: The patient tolerated the procedure well Coding - Large joint Procedure code (CPT) selection complete Assessment & Plan Assessment & Plan (1) Left shoulder pain: Code(s): M25.512 - Pain in left shoulder Category: Medical (2) Right shoulder pain: Code(s): M25.511 - Pain in right shoulder Category: Medical Plan Ms. Jimenez presents with bilateral shoulder pains due to impingement syndrome. I had a lengthy discussion with the patient regarding the treatment options. The risks and benefits of bilateral shoulder cortisone injections were discussed at length with the patient. The patient wished to proceed. She tolerated the injections well. She will continue with her home stretching program to prevent stiffness. She will contact me prior to her follow-up appointment in 3 months should any questions or concerns arise. Feel free to call me at any time should questions regarding her orthopedic management arise. I spent 20 minutes in reviewing the patient's records and imaging studies, seeing the patient and documenting in the medical record. Orders: Orders AMB Joint Injection/Aspiration Today M25.511 - Pain in right shoulder AMB Joint Injection/Aspiration Today M25.512 - Pain in left shoulder Coding Level of Care Code Est Pt Level 3 (55983) Complex EM visit Add On G2211 Diagnoses Left shoulder pain M25.512 Right shoulder pain M25.511 CPT Codes Coding - 69658 Large joint: 02983 - Large joint ([id number]) Coding - Large joint: 39971 - Large joint ([id number])
== END 2024-03-04 15:41 | disposition home or self-care (01) ==
PROVIDERS: PCP Internal Medicine; Visit Provider Orthopaedic Surgery
DX: M25.512 Pain in left shoulder (principal); M25.511 Pain in right shoulder
CPT/HCPCS: 20610; 99213

== ENCOUNTER → 2024-03-04 15:11 | Outpatient (BNVA) | payer MEDICARE, MEDICAID, SELFPAY | PROVIDERS: PCP Internal Medicine; Visit Provider Orthopaedic Surgery | DX: M25.512 Pain in left shoulder (principal); M25.511 Pain in right shoulder | CPT/HCPCS: 20610; 99212; J1010; J2003 ==

== ENCOUNTER 2024-05-29 10:43 | Outpatient (REF) | payer MEDICARE, MEDICAID, SELFPAY ==
--- NOTE | ~2024-05-29 | XR_ITS ---
EXAMINATION: XR SHOULDER RIGHT; XR SHOULDER LEFT CLINICAL INFORMATION: Pain in right shoulder M25.511. Pain in left shoulder M25.512. COMPARISON: XR Left shoulder 11/03/2023 TECHNIQUE: Two images of right shoulder and two images of right shoulder. FINDINGS: Right shoulder: There is mild loss of right AC joint space with periarticular spurring. The glenohumeral joint space is also reduced. There is soft tissue calcification or hyperdensity seen superior to the right humeral head likely chondrocalcinosis or capsular calcification. No aggressive lytic or sclerotic process seen. The soft tissues are normal. Left shoulder: There is mild loss of left AC and glenohumeral joint space. There is chondrocalcification. No lytic or sclerotic process seen. The soft tissues are normal. XR/XR shoulder LT min 2V IMPRESSION: Mild degenerative changes bilateral shoulder joints with likely chondrocalcinosis or calcification of the capsule. Electronically signed by: Gio Flores MD 06/06/2024 11:46 AM JUSTIN
--- NOTE | ~2024-05-29 | XR_ITS ---
EXAMINATION: XR SHOULDER RIGHT; XR SHOULDER LEFT CLINICAL INFORMATION: Pain in right shoulder M25.511. Pain in left shoulder M25.512. COMPARISON: XR Left shoulder 11/03/2023 TECHNIQUE: Two images of right shoulder and two images of right shoulder. FINDINGS: Right shoulder: There is mild loss of right AC joint space with periarticular spurring. The glenohumeral joint space is also reduced. There is soft tissue calcification or hyperdensity seen superior to the right humeral head likely chondrocalcinosis or capsular calcification. No aggressive lytic or sclerotic process seen. The soft tissues are normal. Left shoulder: There is mild loss of left AC and glenohumeral joint space. There is chondrocalcification. No lytic or sclerotic process seen. The soft tissues are normal. XR/XR shoulder RT min 2V IMPRESSION: Mild degenerative changes bilateral shoulder joints with likely chondrocalcinosis or calcification of the capsule. Electronically signed by: Gio Flores MD 06/06/2024 11:46 AM JUSTIN
== END 2024-05-29 10:44 | disposition home or self-care (01) ==
LOC: HO.HOSX 10:43
PROVIDERS: Visit Provider Orthopaedic Surgery
DX: M25.511 Pain in right shoulder (principal); M25.512 Pain in left shoulder
CPT/HCPCS: 73030; 99212

== ENCOUNTER 2024-05-29 15:06 | Outpatient (AMB) | payer MEDICARE, MEDICAID, SELFPAY ==
[2024-05-29 15:19] VITALS: BMI 22.9
--- NOTE | 2024-05-29 15:19 | A.OFFVIS_ITS ---
Vital Signs 05/29/24 15:19 Height 5 ft 7 in Weight 146 lb BMI 22.9 Intake Visit Reasons: OV - B/L shoulder pain, last injection 03/04/24 Intake Note: Linda is an 83 year old female who presents today for a bilateral shoulder pain follow up, last injection 03/04/24. She reports mild intermittent discomfort in both of her shoulders. She continues with her home stretching program. She does not take any medicines for her discomfort. [employer] Required: No Allergies oxycodone [Percocet] Allergy (Intermediate, Verified 05/29/24 15:19) vomiting aspirin Allergy (Mild, Verified 05/29/24 15:19) HYPERVENTILATION Fish Containing Products Allergy (Mild, Verified 05/29/24 15:19) HIVES Penicillins Allergy (Mild, Verified 05/29/24 15:19) DIFFICULTY BREATHING/VOMITING turkey Allergy (Mild, Verified 05/29/24 15:19) HIVES Medication List - Last Reconciled 05/30/24 by Grady Grande MD acetaminophen 500 mg PO Q6H PRN atorvastatin 40 mg PO DAILY ferrous gluconate 324 mg PO DAILY hydrochlorothiazide 12.5 mg PO DAILY levothyroxine 25 mcg PO DAILY metoprolol succinate ER 100 mg PO DAILY omeprazole 20 mg PO DAILY PFSH Medical History (Updated 04/30/24 @ 12:04 by Rebecca Richard RN) Vein disorder HTN (hypertension) DVT (deep venous thrombosis) CVA (cerebral vascular accident) Aneurysm Anemia Elevated cholesterol Surgical History (Updated 04/30/24 @ 12:04 by Rebecca Richard RN) History of esophagogastroduodenoscopy (EGD) S/P ascending aortic aneurysm repair H/O: section Social History Patient Tobacco Use Status: Never used Tobacco Physical Exam Vital Signs: BMI result Body Mass Index 22.9 Const Other: Well-nourished well-developed very friendly female awake alert and oriented x3 in no acute distress Extrem Other: Bilateral upper extremity examination shows good capillary refill, no skin lesions noted, normal sensation light touch Bilateral shoulder examination shows forward flexion to 170 degrees, external rotation to 50 degrees internal rotation to level L2, 4+ out of 5 strength with supraspinatus testing, positive impingement signs, no instability Assessment & Plan Assessment & Plan (1) Right shoulder pain: Code(s): M25.511 - Pain in right shoulder Category: Medical (2) Left shoulder pain: Code(s): M25.512 - Pain in left shoulder Category: Medical Plan Ms. Jimenez presents with bilateral shoulder pains due to impingement syndrome. I had a lengthy discussion with the patient regarding treatment options. At this point the patient's symptoms are tolerable to her. We will hold off on another cortisone injection. She will continue with her home stretching program. She will follow up with me on an as-needed basis should her symptoms worsen in any way. Feel free to call me at any time should questions regarding her orthopedic management arise. I spent 22 minutes in reviewing the patient's records and imaging studies, seeing the patient and documenting in the medical record. Orders: Orders XR shoulder RT min 2V 05/29/24 M25.511 - Pain in right shoulder Coding Level of Care Code Est Pt Level 3 (66183) Complex EM visit Add On G2211 Diagnoses Right shoulder pain M25.511 Left shoulder pain M25.512
== END 2024-05-29 15:35 | disposition home or self-care (01) ==
PROVIDERS: PCP Internal Medicine; Visit Provider Orthopaedic Surgery
DX: M25.511 Pain in right shoulder (principal); M25.512 Pain in left shoulder
CPT/HCPCS: 99213; G2211

== ENCOUNTER → 2024-06-10 08:08 | Day surgery (SDC) | payer MEDICARE, MEDICAID, SELFPAY ==
--- NOTE | 2024-06-09 09:56 | P.CONAN_ITS ---
HPI - Anesthesia Eval Consult details Narrative: 83yo F for Colonoscopy s/p TAA and PFO closure 2022. Last cardiac office visit 03/2023 with [facility] [place] Cardiology, stable PMFSH Active Problems Active Problems: All Active Problems Right shoulder pain (Acute) Left shoulder pain (Acute) Cerebrovascular accident (Acute) HTN (hypertension) (Acute) S/P ascending aortic aneurysm repair (Acute) Past Medical History Medical History (Updated 04/30/24 @ 12:04 by Rebecca Richard RN) Vein disorder HTN (hypertension) DVT (deep venous thrombosis) CVA (cerebral vascular accident) Aneurysm Anemia Elevated cholesterol Family History Family history of problems with anesthesia: No Surgical History Surgical History (Updated 04/30/24 @ 12:04 by Rebecca Richard RN) History of esophagogastroduodenoscopy (EGD) S/P ascending aortic aneurysm repair H/O: section History of Problems with Anesthesia: No Social History Social History Patient Tobacco Use Status: Never used Tobacco Meds Allergies Allergy/AdvReac Type Severity Reaction Status Date / Time oxycodone [Percocet] Allergy Intermediate vomiting Verified 05/29/24 15:19 aspirin Allergy Mild HYPERVENTIL Verified 05/29/24 15:19 ATION Fish Containing Products Allergy Mild HIVES Verified 05/29/24 15:19 Penicillins Allergy Mild DIFFICULTY Verified 05/29/24 15:19 BREATHING/VOMITING turkey Allergy Mild HIVES Verified 05/29/24 15:19 Home Medications ?Medication ?Instructions ?Recorded ?Confirmed ?Last Taken ?Type atorvastatin 40 mg tablet 40 mg PO DAILY 04/10/23 05/30/24 Unknown History metoprolol succinate 100 mg 100 mg PO DAILY 04/10/23 05/30/24 Unknown History tablet,extended release 24 hr acetaminophen 500 mg tablet 500 mg PO Q6H PRN Pain 04/30/24 05/30/24 Unknown History ferrous gluconate 324 mg (38 mg 324 mg PO DAILY 04/30/24 05/30/24 Unknown History iron) tablet hydrochlorothiazide 12.5 mg tablet 12.5 mg PO DAILY 04/30/24 05/30/24 Unknown Hi story levothyroxine 25 mcg tablet 25 mcg PO DAILY 04/30/24 05/30/24 Unknown History omeprazole 20 mg capsule,delayed 20 mg PO DAILY 04/30/24 05/30/24 Unknown History release Exam Narrative Narrative: ECHO 03/2023 Conclusions: - 1. Normal LV ejection fraction 55-60% with mild LVH with impaired relaxation filling pattern 2. Mildly dilated left atrium 3. Calcific aortic valve changes noted with mild aortic regurgitation 4. Calcific mitral valve changes noted with mild mitral stenosis cannot be entirely ruled out on this study 5. Ascending aorta is at upper limits of normal in size 6. No gross pericardial effusion Assessment and Plan Assessment Anesthesia Assessment: Chart Reviewed Final Anesthetic Review Family History of Problems with Anesthesia: No History of Problems with Anesthesia: No
[2024-06-10] MEDS: Sodium Phosphate,Mono-Dibasic 133 ML ENEMA PR (09:09)
[2024-06-10] MEDS: Lactated Ringers 1,000 ML 100 ML IVCONT (09:10)
[2024-06-10 09:18] VITALS: BMI 22.8
--- NOTE | 2024-06-10 09:46 | PC.NURSE ---
Pt arrived w/her daughter More. Pt reported completed prep and had a regular large stool at 11pm last night and nothing since. Per MD, fleet enema administered. Pt able to have a regular BM w/brown round stool/some blood noted from existing hemorrhoids. MD at bedside discussed cancelation and reschedule w/a [address] Pt [address] Jonhson office to contact pt and reschedule procedure.
== END ==
LOC: HO.SSS 08:09
PROVIDERS: PCP Internal Medicine; Visit Provider Internal Medicine Gastroenterology
DX: D50.9 Iron deficiency anemia, unspecified (principal); Z53.8 Procedure and treatment not carried out for other reasons

== ENCOUNTER 2024-07-07 13:16 | Outpatient (AMB) | payer MEDICARE, MEDICAID, SELFPAY ==
[2024-07-07 13:32] VITALS: BP 140/84; PULSE 66; BMI 23.8
--- NOTE | 2024-07-07 13:32 | MHC.OFFVIS ---
Vital Signs 07/07/24 13:32 Height 5 ft 6 in Weight 147 lb 11.355 oz BMI 23.8 BP 140/84 H Blood Pressure Location Lt brachial Position Sitting Pulse 66 Intake Visit Reasons: r/s 04/09/14 1 yr followup w/ekg Intake Note: 1 year follow-up with ekg c/o sworness in center of chest Energy Sales Broker Required: Yes Energy Sales Broker Services: Energy Sales Broker Offered & Declined Client Renewal Specialist: Client Renewal Specialist Present Accompanied by: Daughter Allergies oxycodone [Percocet] Allergy (Intermediate, Verified 06/10/24 08:51) vomiting aspirin Allergy (Mild, Verified 06/10/24 08:51) HYPERVENTILATION Fish Containing Products Allergy (Mild, Verified 06/10/24 08:51) HIVES Penicillins Allergy (Mild, Verified 06/10/24 08:51) DIFFICULTY BREATHING/VOMITING turkey Allergy (Mild, Verified 06/10/24 08:51) HIVES Medication List - Last Reconciled 07/07/24 by Goldy Allan MD acetaminophen 500 mg PO Q6H PRN atorvastatin 40 mg PO DAILY ferrous gluconate 324 mg PO DAILY hydrochlorothiazide 12.5 mg PO DAILY levothyroxine 25 mcg PO DAILY metoprolol succinate ER 100 mg PO DAILY omeprazole 20 mg PO DAILY HPI Comments Details: Linda comes for follow-up. She has been doing well from cardiac perspective. She was accompanied by her daughter who acts as community relations specialist. Patient still has sternal discomfort from her open heart surgery and sometimes says that when there is some pressure on it she feels pain. She was no abnormal cracking sounds. She denies any other complaints. Still remains active. Denies any exertional chest pain or shortness of breath. Denies any prolonged palpitations. No lightheadedness, syncope. Takes all her medications regularly. [facility] Medical History Vein disorder HTN (hypertension) DVT (deep venous thrombosis) CVA (cerebral vascular accident) Aneurysm Anemia Elevated cholesterol Surgical History History of esophagogastroduodenoscopy (EGD) S/P ascending aortic aneurysm repair H/O: section Social History Are you a primary healthcare or medical to a significant other at home: No Do you presently have visiting nurse or other home services: No Patient Tobacco Use Status: Never used Tobacco Review of Systems Const Denies chills, Denies fatigue, Denies fever(s), Denies frequent falls, Denies weakness, Denies weight gain and Denies weight loss ENT Denies dizziness Card Denies chest pain, Denies leg edema, Denies lightheadedness, Denies palpitations, Denies dyspnea, Denies dyspnea on exertion, Denies orthopnea and Denies other (loss of consciousness) Resp Denies cough, Denies dyspnea and Denies dyspnea on exertion GI Denies hematochezia and Denies change in stool character Musc Denies abnormal gait, Denies muscle weakness, Denies numbness, Denies radiating pain into limb and Denies tingling Neuro Denies abnormal gait, Denies dizziness, Denies frequent falls, Denies numbness, Denies tingling and Denies weakness Endo Denies fatigue and Denies palpitations Physical Exam Vital Signs: Last Vital Signs Pulse 66 07/07/24 13:32 BP 140/84 H 07/07/24 13:32 BMI result Body Mass Index 23.8 Const General: cooperative, comfortable, no acute distress, alert and awake Nutritional Appearance: thin and other (Frail elderly woman) Orientation/consciousness: patient oriented x3 Limitations: no limitations HEENT Head: Yes normocephalic and Yes atraumatic Neck Neck: Yes trachea midline, Yes supple and Yes no JVD Chest Chest palpation & inspection: other (Sternal wound appears to be stable with no abnormal movements) Resp Effort & Inspection: normal respiratory effort Auscultation: clear to auscultation bilaterally Cardio Jugular venous distension: no JVD Palpation: normal PMI Rate: regular rate Rhythm: regular rhythm Heart sounds: S1 normal heart sound present, S2 normal heart sound present, no click, no gallops, no murmurs and no rubs GI Auscultation: normal bowel sounds Skin General skin exam: no rashes or lesions noted Neuro General: patient oriented x3 and no focal motor deficits Extrem General: Yes no clubbing, cyanosis or edema Office Procedures EKG Details: EKG shows normal sinus rhythm with normal EKG [id number], Complete Assessment & Plan Assessment & Plan (1) S/P ascending aortic aneurysm repair: Comment: @ [facility] [place]-November 2022 for ascending aortic aneurysm of 5.1 cm associated with PFO closure. Normal coronary arteries. Code(s): Z98.890 - Other specified postprocedural states; Z86.79 - Personal history of other diseases of the circulatory system Category: Surgical Plan: Status post ascending aortic aneurysm repair along with PFO closure. At that time she had normal coronary arteries. Her sister passed yesterday from sudden cardiac that. Unclear etiology. Advised to follow up with autopsy results. If she also had ascending aortic aneurysm requires screening for the family including kids and siblings for evaluation for aortic aneurysm. Continue aggressive blood pressure control. Follow-up echocardiogram in 1 year's time. (2) HTN (hypertension): Code(s): I10 - Essential (primary) hypertension Category: Medical Plan: Hypertension which is currently well optimized advised to monitor blood pressure at home maintain a log. Goal blood pressure less than 130/84. Low-salt diet was discussed. To maintain activity level as tolerated. target goal blood pressure less than 130/84. Will follow up in the clinic in 1 year's time, sooner p.r.n.. Thank you for allowing me to partake in her care Orders: Orders CA echo transthoracic complete 1 Year Z86.79 - Personal history of other diseases of the circulatory system, Z98.890 - Other specified postprocedural states Coding Level of Care Code Est Pt Level 4 (54654) Complex EM visit Add On G2211 Diagnoses S/P ascending aortic aneurysm repair Z98.890; Z86.79 HTN (hypertension) I10 CPT Codes EKG - CPT: 62213-[id number], Complete ([id number])
== END 2024-07-07 13:53 | disposition home or self-care (01) ==
PROVIDERS: PCP Internal Medicine; Visit Provider Internal Medicine Cardiovascular Disease
DX: Z98.890 Other specified postprocedural states (principal); Z86.79 Personal history of other diseases of the circulatory system; I10 Essential (primary) hypertension
CPT/HCPCS: 93010; 99214; G2211

== ENCOUNTER → 2024-07-07 13:16 | Outpatient (BNVA) | payer MEDICARE, MEDICAID, SELFPAY | PROVIDERS: PCP Internal Medicine; Visit Provider Internal Medicine Cardiovascular Disease | DX: Z98.890 Other specified postprocedural states (principal); I10 Essential (primary) hypertension; Z86.79 Personal history of other diseases of the circulatory system | CPT/HCPCS: 93005; 99212 ==

== ENCOUNTER 2024-08-04 12:56 | Emergency (ER) | payer MEDICARE, MEDICAID, SELFPAY ==
--- NOTE | ~2024-08-04 | XR_ITS ---
EXAMINATION: XR CHEST CLINICAL INFORMATION: productive cough COMPARISON: None available. Correlation made with CT chest of 04/07/2019. TECHNIQUE: 2 views of the chest were obtained. FINDINGS: The cardiac, hilar, and mediastinal contours are normal. The lungs are diffusely hyperaerated, however clear bilaterally. There is no pneumothorax or pleural effusion. There is no focal osseous or soft tissue abnormality. Prior sternotomy with sternal hardware in place. Calcific tendinopathy of both rotator cuff's. Degenerative spinal changes present. XR/XR chest 2V IMPRESSION: 1. No active pulmonary disease. COPD. 2. Prior sternotomy. Electronically signed by: Benito Sethi MD 08/04/2024 02:17 PM EDT
[2024-08-04 13:45] VITALS: BP 131/46; PULSE 66; RESP 18; TEMP 36.7; O2SAT 95; BMI 23.4
--- NOTE | 2024-08-04 13:46 | ECG_ITS ---
Test Reason : CP Blood Pressure : */* mmHG Vent. Rate : 64 BPM Atrial Rate : 64 BPM P-R Int : 176 ms QRS Dur : 84 ms QT Int : 454 ms P-R-T Axes : -29 -14 43 degrees QTcB Int : 468 ms Normal sinus rhythm with sinus arrhythmia Normal ECG When compared with ECG of 04-Jun-2020 22:01, Nonspecific T wave abnormality no longer evident in Anterior leads Referred By: Tess Sarkar Electronically Signed By: KEANU VALDOVINOS
--- NOTE | 2024-08-04 13:47 | ED_ITS ---
HPI - URI/Sore Throat General Chief Complaint: Upper Respiratory Symptoms Stated Complaint: cough chest pain Related Data Home Medications ?Medication ?Instructions ?Recorded ?Confirmed atorvastatin 40 mg tablet 40 mg PO DAILY 04/10/23 07/18/24 metoprolol succinate 100 mg 100 mg PO DAILY 04/10/23 07/18/24 tablet,extended release 24 hr acetaminophen 500 mg tablet 500 mg PO Q6H PRN Pain 04/30/24 07/18/24 ferrous gluconate 324 mg (38 mg 324 mg PO DAILY 04/30/24 07/18/24 iron) tablet hydrochlorothiazide 12.5 mg tablet 12.5 mg PO DAILY 04/30/24 07/18/24 levothyroxine 25 mcg tablet 25 mcg PO DAILY 04/30/24 07/18/24 omeprazole 20 mg capsule,delayed 20 mg PO DAILY 04/30/24 07/18/24 release Allergies Allergy/AdvReac Type Severity Reaction Status Date / Time oxycodone [Percocet] Allergy Intermediate vomiting Verified 08/04/24 13:47 aspirin Allergy Mild HYPERVENTIL Verified 08/04/24 13:47 ATION Fish Containing Products Allergy Mild HIVES Verified 08/04/24 13:47 Penicillins Allergy Mild DIFFICULTY Verified 08/04/24 13:47 BREATHING/VOMITING turkey Allergy Mild HIVES Verified 08/04/24 13:47 PMFSH Past Medical History Medical History Vein disorder HTN (hypertension) DVT (deep venous thrombosis) CVA (cerebral vascular accident) Aneurysm Anemia Elevated cholesterol Surgical History History of esophagogastroduodenoscopy (EGD) S/P ascending aortic aneurysm repair H/O: section Social History Social History Are you a primary health care marketing specialist to a significant other at home: No Do you presently have visiting nurse or other home services: No Patient Tobacco Use Status: Never used Tobacco Advance Directives: No Advance Directives Information Provided: No Do you have a plan to hurt others: No Plan Physical Exam 2 Vital Signs: Vital Signs: Last Vital Signs Temp 98.1 F 08/04/24 13:45 Pulse 66 08/04/24 13:45 Resp 18 08/04/24 13:45 BP 131/46 L 08/04/24 13:45 Pulse Ox 95 08/04/24 13:45 O2 Del Method Room Air 08/04/24 13:45 BMI result Body Mass Index 23.4 Course Course Course Narrative: This is a Rapid Medical Examination (RME) performed by Doris Sarkar PA-C in triage. Full HPI, ROS, assessment and treatment plan per primary provider in the Main ED. 83 yo female here for eval of feeling unwell x2 weeks. reports productive cough, chest pain on coughing, and nasal congestion. her PCP has been treating her for suspected flu w/ mucinx and tylenol. no improvement. has not tested for flu. no hx copd/asthma. Plan: ekg, labs, viral swabs, cxr Reevaluation(s) Reevaluation #1: Patient left the emergency department before myself or any of the other clinicians could review or explain physical exam findings, test results, need or lack there of for additional testing, treatment options, or a treatment plan. Medical Decision Making Lab Data 08/04/24 14:14 08/04/24 14:14 Labs: Lab Results 08/04/24 Range/Units 14:14 WBC 5.0 (4.8-10.8) X10*3/uL RBC 4.49 (4.20-5.50) X10*6/uL Hgb 11.5 L (12.0-16.0) g/dl Hct 36.8 L (37.0-47.0) % MCV 82.0 (80.0-98.0) fL MCH 25.6 L (27.0-33.0) pg MCHC 31.3 (31.0-35.0) g/dl RDW 17.2 H (11.0-16.0) % Plt Count 197 (160-400) X10*3/uL MPV 10.1 (9.4-12.3) fL Immature Gran % (Auto) 4.6 H (0.0-0.4) % Neut % (Auto) 56.7 (45-73) % Lymph % (Auto) 28.2 (20-40) % [place] % (Auto) 9.9 (2-11) % Eos % (Auto) 0.2 (0-4) % Baso % (Auto) 0.4 (0-2) % Lymph # (Auto) 1.4 (1.2-4.9) X10*3/uL [place] # (Auto) 0.5 (0.1-1.2) X10*3/uL Eos # (Auto) 0.0 (0.0-0.4) X10*3/uL Baso # (Auto) 0.0 (0.0-0.2) X10*3/uL Abs Immat Gran (auto) 0.23 H (0.00-0.03) X10*3/uL Absolute Neuts (auto) 2.9 (2.0-8.3) x10*3/uL Absolute Nucleated RBC 0.000 (0.0-0.012) X10*3/uL Nucleated RBC % (auto) 0.0 (0.0-0.2) /100WBC Sodium 143 (135-145) mmol/L Potassium 3.8 (3.3-5.1) mmol/L Chloride 109 H (96-108) mmol/L Carbon Dioxide 28 (22-29) mmol/L Anion Gap 10 L (12-20) BUN 11 (9-16) mg/dL Creatinine 0.74 (0.5-1.4) mg/dL Estim Creat Clear Calc 53.9 Estimated GFR > 60 Random Glucose 72 (60-115) mg/dL Calcium 9.3 (8.4-10.2) mg/dL Magnesium 2.1 (1.6-2.6) mg/dL Total Bilirubin 0.4 (0.0-1.0) mg/dL AST 14 (5-31) U/L ALT 10 (0-31) U/L Alkaline Phosphatase 54 (39-117) U/L Troponin I High Sens 3.2 (<3.5-17.0) ng/L B-Natriuretic Peptide 212 H (<100) pg/mL Total Protein 8.3 H (6.5-8.0) g/dL Albumin 3.8 (3.5-5.0) g/dL Lipase 17 (8-78) U/L Influenza Type A (PCR) NEGATIVE (Negative) Influenza Type B (PCR) NEGATIVE (Negative) RSV RNA Qual (PCR) NEGATIVE (Negative) SARS-CoV-2 RNA (RT-PCR) NEGATIVE (Negative) Discharge Plan Discharge Clinical Impression: Cough Patient Disposition: Left W/O Completing Treatment Prescriptions: No Action metoprolol succinate 100 mg tablet extended release 24 hr 100 mg PO DAILY acetaminophen 500 mg Tablet 500 mg PO Q6H PRN (Reason: Pain) omeprazole 20 mg Capsule,Delayed Release(Dr/Ec) 20 mg PO DAILY ferrous gluconate 324 mg (38 mg iron) Tablet 324 mg PO DAILY levothyroxine 25 mcg tablet 25 mcg PO DAILY hydrochlorothiazide 12.5 mg tablet 12.5 mg PO DAILY atorvastatin 40 mg tablet 40 mg PO DAILY Discharge Date/Time: 08/04/24 21:52
[2024-08-04 14:21] LABS: MANUAL DIFF FLAG NO
[2024-08-04 14:23] LABS: Basophils Percent Auto 0.4 % (0-2); Eosinophils Percent Auto 0.2 % (0-4); Hematocrit 36.8 % (37.0-47.0); Hemoglobin 11.5 g/dl (12.0-16.0); Imm Gran Abs Auto 0.23 X10*3/uL (0.00-0.03); Imm Gran Pct Auto 4.6 % (0.0-0.4); Lymphocytes Absolute Auto 1.4 X10*3/uL (1.2-4.9); Lymphocytes Percent Auto 28.2 % (20-40); Mean Corpuscular HGB Conc 31.3 g/dl (31.0-35.0); Mean Corpuscular Hemoglobin 25.6 pg (27.0-33.0); Mean Platelet Volume 10.1 fL (9.4-12.3); Monocytes Absolute Auto 0.5 X10*3/uL (0.1-1.2); Monocytes Percent Auto 9.9 % (2-11); Neutrophils Absolute Auto 2.9 x10*3/uL (2.0-8.3); Neutrophils Percent Auto 56.7 % (45-73); Platelet Count 197 X10*3/uL (160-400); Red Blood Count 4.49 X10*6/uL (4.20-5.50); Red Cell Distribution Width 17.2 % (11.0-16.0)
[2024-08-04 14:49] LABS: Alanine Aminotransferase 10 U/L (0-31); Albumin Level 3.8 g/dL (3.5-5.0); Alkaline Phosphatase 54 U/L (39-117); Anion Gap 10 (12-20); Aspartate Amino Transferase 14 U/L (5-31); Bilirubin Total 0.4 mg/dL (0.0-1.0); Blood Urea Nitrogen 11 mg/dL (9-16); Calcium 9.3 mg/dL (8.4-10.2); Carbon Dioxide 28 mmol/L (22-29); Chloride 109 mmol/L (96-108); Creatinine Clr Calc Pharmacy 53.9; Estimated Glomerular Filt Rate > 60; Glucose Random 72 mg/dL (60-115); Lipase 17 U/L (8-78); Magnesium 2.1 mg/dL (1.6-2.6); Potassium 3.8 mmol/L (3.3-5.1); Sodium 143 mmol/L (135-145); Total Protein 8.3 g/dL (6.5-8.0)
[2024-08-04 14:52] LABS: B Type Natriuretic Peptide 212 pg/mL (<100)
[2024-08-04 14:56] LABS: Troponin-I High Sensitivity 3.2 ng/L (<3.5-17.0)
[2024-08-04 14:59] LABS: Influenza A PCR NEGATIVE (Negative); Influenza B PCR NEGATIVE (Negative); Resp Syncy Virus RNA Qual PCR NEGATIVE (Negative); SARS COV2 PCR INHOUSE NEGATIVE (Negative)
--- NOTE | 2024-08-04 21:43 | PC.NURSE ---
NO ANSWER FROM ashley AT 21:43
== END 2024-08-04 21:52 | disposition left against medical advice (07) ==
PROVIDERS: Physician Assistant Medical; Emergency Provider Emergency Medicine; PCP Internal Medicine
DX: R05.9 Cough, unspecified (principal); Z03.818 Encounter for observation for suspected exposure to other biological agents ruled out; I10 Essential (primary) hypertension
CPT/HCPCS: 0241U; 36415; 71046; 80053; 83690; 83735; 83880; 84484; 85025; 93005; 99283

== ENCOUNTER → 2024-08-04 13:46 | Outpatient (BNV) | payer MEDICARE, MEDICAID, SELFPAY | PROVIDERS: PCP Internal Medicine; Visit Provider Radiology Diagnostic Radiology | DX: J44.9 Chronic obstructive pulmonary disease, unspecified (principal) | CPT/HCPCS: 71046 ==

== ENCOUNTER → 2024-08-04 13:46 | Outpatient (BNV) | payer MEDICARE, MEDICAID, SELFPAY | PROVIDERS: Emergency Provider Emergency Medicine; PCP Internal Medicine; Visit Provider Internal Medicine | DX: R07.9 Chest pain, unspecified (principal); R94.31 Abnormal electrocardiogram [ECG] [EKG] | CPT/HCPCS: 93010 ==